=== PATIENT | female | born 1970 | race Caucasian/White ===

== ENCOUNTER 2024-10-18 12:27 | Inpatient (IN) | payer OTHER ==
[~2024-10-18 12:27] MED LIST: CITA20 PO; CLIN300 PO; HYDACE5 PO; HYDGUAL120 PO; IBUP800 PO; LORA2 PO
[2024-10-18] MEDS ORDERED: Acetaminophen325 M1 PO (14:27)
[2024-10-18 14:29] VITALS: BP 145/88
--- NOTE | 2024-10-18 14:46 | NUR ---
PT ARRIVED TO THE UNIT AT APROX 1416 TX FROM [facility]. DR JONES NOTIFIED. ADMIT HISTORY COMPLETE. PT A/O X'S 4,INDEPENDENT IN ROOM. REPORTS WORSENING ABD PAIN OVER THE LAST MONTH, DID SEEK MEDICAL ATTENTION AND WAS TX FOR "KIDNEY INFECTION" BUT PAIN DID NOT RESOLVE SO SHE WENT BACK TO THE HOSPITAL. PT HAD INCREASED PAIN TODAY SO REPEAT CT WAS ORDERED AND FOLLOWING THE DECISION WAS MADE TO TX HERE. DR OJNES NOTIFIED OF ADMISSION
[2024-10-18] MEDS ORDERED: FentaNYL Citrate 50 MCG/ML 2 ML Injection IV PRN (15:45)
[2024-10-18] MEDS ORDERED: FLU VACC TS2024-25(6MOS UP)/PF 45 MCG/0.5 ML SYRINGE IM ONE (15:45)
[2024-10-18] MEDS ORDERED: NS KCl 20mEq 1,000 ML IV SCH (15:45)
[2024-10-18] MEDS ORDERED: CefTRIAXone Sodium 2,000 MG in NS 100 ML IV SCH (16:00)
[2024-10-18] MEDS ORDERED: MetroNIDAZOLE 500MG/NS 100 ml 100 ML IV SCH (16:00)
[2024-10-18] MEDS ORDERED: Ondansetron HCl 2 MG / ML 2ML Vial IV PRN (16:25)
--- NOTE | 2024-10-18 17:30 | NUR ---
PATIENT IS ALLERT AND ORIENTED AND COOPERATIVE WITH CARE. DIRECT ADMIT FROM [facility] TODAY AROUD 2PM. C/O LOWER ABDOMINAL PAIN, MEDICATED PER EMAR. ON RA. NICOTINE PATCH ON RIGHT ARM. INDEPENDENT IN THE ROOM. NPO SINCE 0700 TODAY. PLAN IS TO CONSULT SURGERY TOMORROW MORNING 10/19/24. AFTER SHE WAS MEDICATED FOR PAIN, THE PATIENT HAS BEEN ABLE TO SLEEP. SHE LIVES IN [place], [place]. WILL CONTINUE TO MONITOR
[2024-10-18 19:08] VITALS: BP 156/96
[2024-10-18] MEDS ORDERED: Docusate Sodium 100 MG Cap PO SCH (21:00)
[2024-10-19] VITALS (10 sets, daily range): BP systolic 132–177; BP diastolic 87–99
--- NOTE | 2024-10-19 04:24 | NUR ---
SHIFT SUMMARY NO ACUTE CHANGES T/O THE NIGHT. PT IS PLEASANT AND COOPERATIVE WITH CARE. A/OX4 WITH VSS. IS NPO WITH IVF AND ABX INFUSING PER ORDERS. IS VOIDING CLEAR YELLOW URINE, ONE SMALL SOFT BM DURING SHIFT. IND IN ROOM. PAIN MANAGED PER EMAR. CHG SCRUB COMPLETE. PLAN FOR CONSULT AND POSSIBLE SURGICAL INTERVENTION TODAY. WILL GIVE REPORT TO ONCOMING RN.
[2024-10-19 05:05] LABS: BASOPHILS ABSOLUTE AUTO 0.04 K/mm3 (0.00-0.23); BASOPHILS PERCENT AUTO 0 % (0-2); EOSINOPHILS ABSOLUTE AUTO 0.08 K/mm3 (0.00-0.68); EOSINOPHILS PERCENT AUTO 1 % (0-6); Hematocrit 30.1 % (33.0-51.0); Hemoglobin 9.6 g/dL (11.5-16.0); IMMATURE GRAN PERCENT AUTO 1 % (0-1); LYMPHOCYTES ABSOLUTE AUTO 2.14 K/mm3 (0.84-5.20); LYMPHOCYTES PERCENT AUTO 13 % (21-46); MONOCYTES ABSOLUTE AUTO 0.79 K/mm3 (0.16-1.47); MONOCYTES PERCENT AUTO 5 % (4-13); Mean Corpuscular HGB 25.1 pg (26.0-34.0); Mean Corpuscular HGB Conc 31.9 g/dL (31.5-36.5); Mean Corpuscular Volume 79 fL (80-100); Mean Platelet Volume 9.5 fL (9.1-12.4); NEUTROPHILS ABSOLUTE AUTO 13.12 K/mm3 (1.96-9.15); NEUTROPHILS PERCENT AUTO 80 % (41-73); Platelet Count 523 K/mm3 (150-400); RDW Coefficient Variation 14.1 % (11.7-14.2); RDW Standard Deviation 39.9 fL (35.1-46.3); Red Blood Cell Count 3.82 M/mm3 (3.80-5.20); White Blood Cell Count 16.37 K/mm3 (4.00-11.30)
[2024-10-19 05:25] LABS: Albumin, Blood 1.9 g/dL (3.4-5.0); Albumin/Globulin Ratio 0.4 (0.8-1.8); Bilirubin, Total 0.3 mg/dL (0.1-1.0); Bun/Creatinine Ratio 8.2 (12.0-20.0); Creatinine, Blood 0.73 mg/dL (0.40-1.00); Globulin, Blood 4.4 g/dL (2.2-4.0); Potassium, Blood 3.4 mmol/L (3.5-5.5); Total Protein, Blood 6.3 g/dL (6.4-8.2)
[2024-10-19] MEDS ORDERED: Pantoprazole Sodium 40 MG Injection IV SCH (06:00)
[2024-10-19] MEDS ORDERED: Enoxaparin 40 MG/0.4 ML SYR SC SCH (09:00)
[2024-10-19] MEDS ORDERED: FLUoxetine HCL 20 MG CAP PO SCH (09:00)
[2024-10-19] MEDS ORDERED: Nicotine 14 MG PATCH TOP SCH (09:00)
[2024-10-19] MEDS ORDERED: NS KCl 20mEq 1,000 ML IV SCH (13:10)
[2024-10-19] MEDS ORDERED: Potassium Chl 20MEQ/Water100ML 100 ML IV ONE (13:10)
[2024-10-19 14:04] LABS: International Normalized Ratio 1.15; Prothrombin Time Results 12.2 Sec (9.7-11.5)
[2024-10-19] MEDS ORDERED: NS 250 ML IV PRN (14:20)
--- NOTE | 2024-10-19 15:38 | NUR ---
Upon receiving a referral for spiritual care, I visited the patient. She tells me about her medical problems and the medical plan of care. She states cynthia she is going into surgery any minute and she welcomes prayer, which I gladly provide. She displays evidence of reduced stress and of being encouraged in her [employer] juli.
--- NOTE | 2024-10-19 15:50 | NUR ---
PT TO RADIOLOGY FOR PROCEDURE
--- NOTE | 2024-10-19 16:40 | NUR ---
POST PROCEDURE PT BACK TO ROOM 211 FROM RADIOLOGY. PT IS ALERT AND RESPONSIVE, VSS, HYPERTENSIVE BUT PT IS PAINFUL. MEDICATED SHORTLY AFTER RETURN TO ROOM. PT TAKING SOME BITES OF PUDDING AND DRINKING CL. CALL LIGHT IN REACH.
--- NOTE | 2024-10-19 17:30 | NUR ---
SHIFT SUMMARY PT IS A/OX4, IND TO BR, VOIDING, HAVING LOOSE BM'S. PT REPORTS MODERATE TO SEVERE ABD PAIN THAT IS RELIEVED BY PAIN MEDS PER EMAR. TOLERATING SMALL AMNT OF FULL LIQUIDS AFTER URISIL DRAIN PLACEMENT TODAY. DRAIN INSERTION SITE C/D/I W/ TEGADERM DRESSING W/ SS OUTPUT. REPLACED K TODAY PER EMAR. PT RESTING IN BED W/ CALL LIGHT IN REACH.
--- NOTE | 2024-10-19 19:35 | NUR ---
UPDATE PT HAVING SEVERE PAIN W/ MOVEMENT AT SITE OF DRAIN PLACEMENT THAT IS RELIEVED WHEN PT IS AT REST. CONSULTED W/ DR LINDSEY AT 1930, SAYS HE WILL COME ASSESS PATIENT AT BEDSIDE.
[2024-10-19] MEDS ORDERED: HYDROcodone 5-APAP 325 TAB PO PRN (19:55)
--- NOTE | 2024-10-20 03:39 | NUR ---
SHIFT SUMMARY S/P SIGMOID COLON ABCESS WASHOUT AND URESIL DRAIN PLACEMENT. DRAIN PRODUCING SCAN AMOUNT OF SANGUINEOUS NOTED IN DRAIN TUBING/BAG. DRAIN SUCTION COMPRESSED AND DRESSING CDI. PAIN MANAGED WITH PO MEDICATION AND FENTANYL X 2 FOR BREAKTHROUGH PAIN. PT IND TO BSC. IS VOIDING AND HAS SMALL LOOSE STOOLS. WILLIAN LIQUID DIET. IVF AND ABX INFUSING PER ORDERS. PROVIDER WILL ROUND IN MORNING TO CHECK ON PATIENT, PLAN TO REMOVE DRAIN IF PAIN IS NOT WILLIAN FOR PATIENT. WILL GIVE REPORT TO ONCOMING RN.
[2024-10-20 04:27] VITALS: BP 139/78
[2024-10-20 04:29] LABS: Hematocrit 29.7 % (33.0-51.0); Hemoglobin 9.3 g/dL (11.5-16.0); Mean Corpuscular HGB 24.7 pg (26.0-34.0); Mean Corpuscular HGB Conc 31.3 g/dL (31.5-36.5); Mean Corpuscular Volume 79 fL (80-100); Mean Platelet Volume 9.5 fL (9.1-12.4); Platelet Count 533 K/mm3 (150-400); RDW Coefficient Variation 14.1 % (11.7-14.2); RDW Standard Deviation 40.2 fL (35.1-46.3); Red Blood Cell Count 3.77 M/mm3 (3.80-5.20); White Blood Cell Count 13.56 K/mm3 (4.00-11.30)
[2024-10-20 05:03] LABS: Bun/Creatinine Ratio 8.2 (12.0-20.0); Creatinine, Blood 0.73 mg/dL (0.40-1.00)
--- NOTE | 2024-10-20 06:43 | NUR ---
PT UPDATE DR. LINDSEY IN TO EVALUATE PT'S URESIL DRAIN R/T UNMANAGED PAIN. PER PROVIDER, DRAIN APPEARS APPROPRIATE WITHOUT ANY ABNORMALITIES NOTED. NEW ORDER FOR PO PAIN MEDICATION PROVIDED. DR. LINDSEY PLANS TO ROUND IN MORNING TO REEVALUATE PT'S PAIN AND WILL REMOVE IT IF NEEDED R/T PAIN. CHARGE NURSE AWARE.
[2024-10-20 07:15] VITALS: BP 126/86
[2024-10-20] MEDS ORDERED: Nicoderm Cq1 EAC1 TOP (10:26)
[2024-10-20] MEDS ORDERED: IRBE150 PO (10:26)
[2024-10-20] MEDS ORDERED: Prozac20 MG PO (10:26)
[2024-10-20] MEDS ORDERED: Acetaminophen 325 MG TABLET PO PRN (15:05)
[2024-10-20 15:24] VITALS: BP 121/82
[2024-10-20 19:01] VITALS: BP 122/90
--- NOTE | 2024-10-20 19:49 | NUR ---
SHIFT SUMMARY PT IS A/OX4, IND/SBA TO BSC. VOIDING, HAVING LOOSE BMS, PT REFUSING STOOL SOFTENERS. TOLERATING FIBER RESTRICTED DIET. IV FLUIDS @ ORDERED RATE. VSS. PAIN MANAGED W/ MEDS PER EMAR. DRAIN PULLED THIS EVENING BY DR. ESPINOZA, DRAIN REMOVAL SITE C/D/I, PT RESTING IN ROOM W/ CALL LIGHT IN REACH.
[2024-10-21 04:48] VITALS: BP 147/91
[2024-10-21 05:39] LABS: Hematocrit 28.3 % (33.0-51.0); Hemoglobin 8.8 g/dL (11.5-16.0); Mean Corpuscular HGB 24.7 pg (26.0-34.0); Mean Corpuscular HGB Conc 31.1 g/dL (31.5-36.5); Mean Corpuscular Volume 80 fL (80-100); Mean Platelet Volume 9.8 fL (9.1-12.4); Platelet Count 533 K/mm3 (150-400); RDW Coefficient Variation 14.5 % (11.7-14.2); RDW Standard Deviation 41.8 fL (35.1-46.3); Red Blood Cell Count 3.56 M/mm3 (3.80-5.20); White Blood Cell Count 10.55 K/mm3 (4.00-11.30)
--- NOTE | 2024-10-21 05:47 | NUR ---
MEDICATED FOR PAIN LLQ PRN PER EMAR. SCHEDULED MEDS GIVEN ORDERED. IVF INFUSING AT 75ML/HR SITE CLEAR. UP TO BSC WITH SB ASSIST TO VOID. DRESSING LLQ WHERE DRAIN WAS REMOVED WITH SCANT YELLOWISH DRAINAGE NOTED. RESTED QUIETLY WHEN UNDISTURBED. CALL LIGHT IN REACH AND BED IN LOWEST POSITION. WILL GIVE REPORT TO ONCOMING RN TAKING PATIENT.
[2024-10-21 05:56] LABS: Bun/Creatinine Ratio 8.2 (12.0-20.0); Calcium, Blood 7.9 mg/dL (8.5-10.1); Creatinine, Blood 0.73 mg/dL (0.40-1.00); Potassium, Blood 3.7 mmol/L (3.5-5.5)
[2024-10-21 07:50] VITALS: BP 138/81
[2024-10-21] MEDS ORDERED: Irbesartan 150 MG Tab PO SCH (09:00)
[2024-10-21] MEDS ORDERED: HYDROcodone 5-APAP 325 TAB PO PRN (14:05)
[2024-10-21] MEDS ORDERED: Ondansetron 4 MG SoluTab MM PRN (14:05)
[2024-10-21] MEDS ORDERED: FentaNYL Citrate 50 MCG/ML 2 ML Injection IV PRN (14:05)
[2024-10-21 15:10] VITALS: BP 116/89
--- NOTE | 2024-10-21 17:06 | NUR ---
SHIFT SUMMARY MS MANCIA C/O LLQ ABDOMINAL PAIN, CONTROLLED ON NORCO/FENTANYL. SHE DESCRIBES THE PAIN SHARP GAS TYPE OF PAIN. SHE WAS ENCOURAGED TO AMBULATE MORE AROUND HER ROOM AND IN THE HALLS. SHE HAS SLEPT ON AND OFF FOR MUCH OF THE SHIFT. GAUZE DRESSING LLQ C,D,I. BED LOW, CALL LIGHT IN REACH.
--- NOTE | 2024-10-21 17:15 | NUR ---
Patient is lying in bed and alert. She tells me about the success of her hospital stay but also talks about some pain incident with a drainage tube. She states that she is grateful for the care she has received and welcomes prayer. I gladly provided prayer to which the patient voices her appreciation. I will continue to remain available to patient and family.
[2024-10-21 19:30] VITALS: BP 124/85
[2024-10-21] MEDS ORDERED: MetroNIDAZOLE 500 MG Tab PO SCH (21:00)
[2024-10-22 04:23] VITALS: BP 122/85
--- NOTE | 2024-10-22 05:57 | NUR ---
SHIFT SUMMARY PATIENT INDEPENDENT IN ROOM, STEADY ON FEET. VOIDING ADEQUATE AMOUNTS. PENDING DISCHARGE TOMORROW. PATIENT REPORTS THAT HER DID IS COMING TO GET HER TO TAKE HER HOME TO [place]. PATIENT C/O OF GAS PAIN, MEDICATED PRN PER EMAR. ENCOURAGED PT TO AMBULATE MORE TO GET RID OF GAS. LLQ WITH SMALL DRSG DRY/INTACT FROM DRAIN SITE THAT WAS D/C'D. RESTED WELL WHEN UNDISTURBED. CALL LIGHT IN REACH AND BED IN LOWEST POSITION. SL PATENT, SITE CLEAR. WILL GIVE REPORT TO ONCOMING RN TAKING PATIENT.
[2024-10-22] MEDS ORDERED: Omeprazole 20 MG CapCR PO SCH (06:00)
[2024-10-22 07:16] VITALS: BP 125/99
[2024-10-22] MEDS ORDERED: LevoFLOXacin 750 MG Tab PO SCH (09:00)
[2024-10-22] MEDS ORDERED: HYDROCODONE-AC1 EA10 PO (11:38)
[2024-10-22] MEDS ORDERED: LEVO750 PO (11:38)
[2024-10-22] MEDS ORDERED: METR500 PO (11:39)
--- NOTE | 2024-10-22 12:31 | NUR ---
DISCHARGE NOTE: PATIENT GOT HERSELF DRESSED AND COLLECTED BELONGINGS. HER DAD CAME AND PICKED HER UP. SHE WAS WHEELED DOWN BY HER DAD, NO SIGNS OR SYMPTOMS OF DISTRESS WITH DISCHARGE.
== END 2024-10-22 12:10 | disposition home or self-care (01) | DRG 392 ==
LOC: MEDS 12:27 → SURS 14:15
PROVIDERS: Internal Medicine; Surgery; ADMIT Internal Medicine
PROC: 0W9J3ZX Drainage of Pelvic Cavity, Percutaneous Approach, Diagnostic (ICD-10-PCS; principal; 2024-10-19)
DX: K57.20 Diverticulitis of large intestine with perforation and abscess without bleeding (principal); F32.A Depression, unspecified; F41.9 Anxiety disorder, unspecified; K21.9 Gastro-esophageal reflux disease without esophagitis; F17.210 Nicotine dependence, cigarettes, uncomplicated; I10 Essential (primary) hypertension; F43.12 Post-traumatic stress disorder, chronic; Z90.721 Acquired absence of ovaries, unilateral; Z90.710 Acquired absence of both cervix and uterus; Z98.890 Other specified postprocedural states; Z88.1 Allergy status to other antibiotic agents; Z88.0 Allergy status to penicillin; Z79.899 Other long term (current) drug therapy
CPT/HCPCS: 36415; 49406; 72192; 80048; 80053; 85025; 85027; 85610; 85730; 87070; 87075; 87147; 87205; A9270; J0696; J1650; J2470; J3010; J3480; J7050

== ENCOUNTER 2024-11-03 10:27 | Emergency (ER) | payer OTHER ==
[~2024-11-03] VITALS: Ht 160 cm; Wt 61.2 kg
[~2024-11-03 10:27] MED LIST changes: +Acetaminophen325 M1 PO; +HYDROCODONE-AC1 EA10 PO; +IRBE150 PO; +LEVO750 PO; +METR500 PO; +Nicoderm Cq1 EAC1 TOP; +Prozac20 MG PO
[2024-11-03 11:33] LABS: BASOPHILS ABSOLUTE AUTO 0.07 K/mm3 (0.00-0.23); BASOPHILS PERCENT AUTO 1 % (0-2); EOSINOPHILS ABSOLUTE AUTO 0.18 K/mm3 (0.00-0.68); EOSINOPHILS PERCENT AUTO 2 % (0-6); Hematocrit 35.6 % (33.0-51.0); Hemoglobin 10.6 g/dL (11.5-16.0); IMMATURE GRAN ABSOLUTE AUTO 0.24 K/mm3 (0.00-0.10); IMMATURE GRAN PERCENT AUTO 2 % (0-1); LYMPHOCYTES ABSOLUTE AUTO 1.76 K/mm3 (0.84-5.20); LYMPHOCYTES PERCENT AUTO 15 % (21-46); MONOCYTES ABSOLUTE AUTO 0.34 K/mm3 (0.16-1.47); MONOCYTES PERCENT AUTO 3 % (4-13); Mean Corpuscular HGB 24.2 pg (26.0-34.0); Mean Corpuscular HGB Conc 29.8 g/dL (31.5-36.5); Mean Corpuscular Volume 81 fL (80-100); Mean Platelet Volume 9.2 fL (9.1-12.4); NEUTROPHILS ABSOLUTE AUTO 9.25 K/mm3 (1.96-9.15); NEUTROPHILS PERCENT AUTO 78 % (41-73); Platelet Count 521 K/mm3 (150-400); RDW Coefficient Variation 15.1 % (11.7-14.2); RDW Standard Deviation 43.7 fL (35.1-46.3); Red Blood Cell Count 4.38 M/mm3 (3.80-5.20); White Blood Cell Count 11.84 K/mm3 (4.00-11.30)
[2024-11-03 11:44] LABS: Albumin/Globulin Ratio 0.6 (0.8-1.8); Bilirubin, Total 0.3 mg/dL (0.1-1.0); Bun/Creatinine Ratio 16.6 (12.0-20.0); Calcium, Blood 9.3 mg/dL (8.5-10.1); Creatinine, Blood 0.78 mg/dL (0.40-1.00); Globulin, Blood 4.7 g/dL (2.2-4.0); Potassium, Blood 3.8 mmol/L (3.5-5.5); Total Protein, Blood 7.7 g/dL (6.4-8.2)
[2024-11-03 11:48] LABS: Source, Urine Clean Catch
[2024-11-03 11:55] LABS: Appearance, Urine Clear (Clear); Bilirubin, Urine Neg (Neg); Blood, Urine 1+ (Neg); Color, Urine Yellow (P-Yellow); Glucose Qualitative, Urine Neg (Neg); Ketones, Urine Neg (Neg); Leukocyte Esterase, Urine Neg (Neg); Nitrite, Urine Neg (Neg); Protein, Urine 1+ (Neg); Urobilinogen, Urine NORM (Normal)
[2024-11-03 12:28] LABS: Squamous Epithelial Cells Many /hpf (Few); White Blood Cells, Urine 0-2 /hpf (0-5)
[2024-11-03 12:29] LABS: Bacteria Mod /hpf
[2024-11-03] MEDS ORDERED: Ondansetron HCl 2 MG / ML 2ML Vial IV ONE (13:45)
[2024-11-03] MEDS ORDERED: Morphine Sulfate 4 MG/1 ML Injection IV ONE (13:45)
[2024-11-03] MEDS ORDERED: LevoFLOXacin 750 MG Tab PO ONE (13:50)
[2024-11-03] MEDS ORDERED: MetroNIDAZOLE 500 MG Tab PO ONE (13:50)
[2024-11-03] MEDS ORDERED: LEVFLO500 PO (14:24)
[2024-11-03] MEDS ORDERED: FLAGYL500 M1 PO (14:24)
[2024-11-03] MEDS ORDERED: Percocet 5-3251 EACH PO (14:24)
== END 2024-11-03 14:30 | disposition home or self-care (01) ==
LOC: ER 10:27
PROVIDERS: Physician Assistant
DX: K57.32 Diverticulitis of large intestine without perforation or abscess without bleeding (principal); I10 Essential (primary) hypertension; K21.9 Gastro-esophageal reflux disease without esophagitis; F17.210 Nicotine dependence, cigarettes, uncomplicated; Z88.0 Allergy status to penicillin; Z79.899 Other long term (current) drug therapy
CPT/HCPCS: 74177; 80053; 81001; 83690; 85025; 87086; 96374-59; 96375-59; 99284-25; A9270; J2270; J2405; Q9967

== ENCOUNTER 2024-11-08 10:34 | Inpatient (IN) | payer OTHER ==
[2024-11-08] VITALS (20 sets, daily range): BP systolic 112–133; BP diastolic 86–108
[~2024-11-08] VITALS: Ht 160 cm; Wt 59.1 kg
[~2024-11-08 10:34] MED LIST changes: +FLAGYL500 M1 PO; +LEVFLO500 PO; +Percocet 5-3251 EACH PO
[2024-11-08] MEDS ORDERED: Ondansetron HCl 2 MG / ML 2ML Vial IV PRN (10:45)
[2024-11-08 11:03] LABS: BASOPHILS ABSOLUTE AUTO 0.06 K/mm3 (0.00-0.23); BASOPHILS PERCENT AUTO 1 % (0-2); EOSINOPHILS ABSOLUTE AUTO 0.11 K/mm3 (0.00-0.68); EOSINOPHILS PERCENT AUTO 1 % (0-6); Hematocrit 39.8 % (33.0-51.0); Hemoglobin 12.3 g/dL (11.5-16.0); IMMATURE GRAN ABSOLUTE AUTO 0.12 K/mm3 (0.00-0.10); IMMATURE GRAN PERCENT AUTO 1 % (0-1); LYMPHOCYTES PERCENT AUTO 29 % (21-46); MONOCYTES ABSOLUTE AUTO 0.42 K/mm3 (0.16-1.47); MONOCYTES PERCENT AUTO 4 % (4-13); Mean Corpuscular HGB 25.1 pg (26.0-34.0); Mean Corpuscular HGB Conc 30.9 g/dL (31.5-36.5); Mean Corpuscular Volume 81 fL (80-100); Mean Platelet Volume 9.8 fL (9.1-12.4); NEUTROPHILS PERCENT AUTO 65 % (41-73); Platelet Count 449 K/mm3 (150-400); RDW Coefficient Variation 16.1 % (11.7-14.2); RDW Standard Deviation 46.2 fL (35.1-46.3); Red Blood Cell Count 4.91 M/mm3 (3.80-5.20); White Blood Cell Count 11.71 K/mm3 (4.00-11.30)
[2024-11-08 11:25] LABS: Albumin, Blood 3.3 g/dL (3.4-5.0); Albumin/Globulin Ratio 0.7 (0.8-1.8); Bilirubin, Total 0.3 mg/dL (0.1-1.0); Bun/Creatinine Ratio 21.7 (12.0-20.0); Creatinine, Blood 0.83 mg/dL (0.40-1.00); Globulin, Blood 4.7 g/dL (2.2-4.0); Potassium, Blood 4.2 mmol/L (3.5-5.5)
[2024-11-08] MEDS ORDERED: Morphine Sulfate 4 MG/1 ML Injection IV ONE (12:05)
[2024-11-08] MEDS ORDERED: Ondansetron HCl 2 MG / ML 2ML Vial IV ONE (12:05)
[2024-11-08 12:18] LABS: International Normalized Ratio 1.02; Prothrombin Time Results 10.9 Sec (9.7-11.5)
[2024-11-08] MEDS ORDERED: Aspirin 325 MG Tab PO ONE (12:20)
[2024-11-08] MEDS ORDERED: LORazepam 2 MG/ML 1ML Injection IV ONE (12:50)
[2024-11-08] MEDS ORDERED: Nitroglycerin 0.4 MG SUBL SL PRN (13:50)
[2024-11-08] MEDS ORDERED: Heparin Sodium 5000 Units/ML 1ML MDV IV ONE (14:00)
[2024-11-08] MEDS ORDERED: Heparin Sodium,Porcine/0.5 NS 500 ML IV SCH (14:00)
[2024-11-08] MEDS ORDERED: Clopidogrel Bisulfate 300 MG TABLET PO ONE (14:46)
[2024-11-08] MEDS ORDERED: Carvedilol 6.25 MG Tab PO SCH (14:49)
[2024-11-08] MEDS ORDERED: Atorvastatin 40 MG Tab PO SCH (15:00)
[2024-11-08] MEDS ORDERED: Nitroglycerin/D5W 250 ML IV SCH (15:20)
[2024-11-08 15:42] LABS: CHOL/HDL RATIO 7.1; Cholesterol 241 mg/dL (50-200); HDL Cholesterol 34 mg/dL (>39); LDL/HDL RATIO 3.8; Low Density Lipoprotein Chol 129 mg/dL (0-110); Triglycerides 391 mg/dL (30-160); Very Low Density Lipoprot Chol 78 mg/dL (6-32)
[2024-11-08] MEDS ORDERED: Clopidogrel Bisulfate 75 MG Tab PO ONE (17:00)
[2024-11-08] MEDS ORDERED: FentaNYL Citrate 50 MCG/ML 2 ML Injection IV PRN (17:20)
[2024-11-08] MEDS ORDERED: TraMADol HCl 50 MG Tab PO PRN (17:20)
[2024-11-08] MEDS ORDERED: Acetaminophen 325 MG TABLET PO PRN (17:20)
--- NOTE | 2024-11-08 19:47 | NUR ---
assumption of care assumed care of pt at 1905, pt awake, alert, oriented x4 sitting up in bed eating dinner tray, denies c/o cp, nausea, or sob, resp even and unlabored on ra, spo2 >90%,afebrile , sr 90s. bp map >65, purewick in place, + pulses richard radial and pedal, no edema noted, skin intact, moves independently, states she had a bloody loose bm in ed this am, piv to right hand and right ac patent with heparin infusing at 15 units/kg/hr to right hand. after eating 50 % of dinner tray pt c/o pain rated at 8 on scale of 0-10 and of anxiety, requesting ativan for anxiety, called and spoke with md with new orders received
[2024-11-08] MEDS ORDERED: LORazepam 1 MG Tab PO PRN (19:55)
[2024-11-08] MEDS ORDERED: Labetalol HCL 5 MG/ML 4ML Injection (Single Dose) IV PRN (20:30)
[2024-11-09] VITALS (46 sets, daily range): BP systolic 89–145; BP diastolic 62–109
[2024-11-09] MEDS ORDERED: Dose Adjust by Pharmacy XX STA ×4 (00:29→21:26)
[2024-11-09] MEDS ORDERED: Heparin Sodium 5000 Units/ML 1ML MDV IV ONE ×3 (00:30→14:35)
[2024-11-09 03:47] LABS: BASOPHILS ABSOLUTE AUTO 0.06 K/mm3 (0.00-0.23); BASOPHILS PERCENT AUTO 1 % (0-2); EOSINOPHILS ABSOLUTE AUTO 0.11 K/mm3 (0.00-0.68); EOSINOPHILS PERCENT AUTO 1 % (0-6); Hematocrit 36.5 % (33.0-51.0); Hemoglobin 11.1 g/dL (11.5-16.0); Mean Corpuscular HGB 24.6 pg (26.0-34.0); Mean Corpuscular HGB Conc 30.4 g/dL (31.5-36.5); Mean Corpuscular Volume 81 fL (80-100); Mean Platelet Volume 9.7 fL (9.1-12.4); Platelet Count 396 K/mm3 (150-400); RDW Coefficient Variation 16.7 % (11.7-14.2); RDW Standard Deviation 48.1 fL (35.1-46.3); Red Blood Cell Count 4.52 M/mm3 (3.80-5.20)
[2024-11-09 03:50] LABS: IMMATURE GRAN ABSOLUTE AUTO 0.06 K/mm3 (0.00-0.10); IMMATURE GRAN PERCENT AUTO 1 % (0-1); LYMPHOCYTES ABSOLUTE AUTO 3.71 K/mm3 (0.84-5.20); LYMPHOCYTES PERCENT AUTO 41 % (21-46); MONOCYTES ABSOLUTE AUTO 0.51 K/mm3 (0.16-1.47); MONOCYTES PERCENT AUTO 6 % (4-13); NEUTROPHILS ABSOLUTE AUTO 4.65 K/mm3 (1.96-9.15); NEUTROPHILS PERCENT AUTO 51 % (41-73)
[2024-11-09 04:11] LABS: Albumin, Blood 2.9 g/dL (3.4-5.0); Albumin/Globulin Ratio 0.7 (0.8-1.8); Bilirubin, Total 0.3 mg/dL (0.1-1.0); Bun/Creatinine Ratio 17.8 (12.0-20.0); Calcium, Blood 8.6 mg/dL (8.5-10.1); Creatinine, Blood 0.84 mg/dL (0.40-1.00); Globulin, Blood 4.2 g/dL (2.2-4.0); Potassium, Blood 3.8 mmol/L (3.5-5.5); Total Protein, Blood 7.1 g/dL (6.4-8.2)
--- NOTE | 2024-11-09 06:13 | NUR ---
SHIFT SUMMARY NO ACUTE CHANGES THIS SHIFT, AFEBRILE, RESP EVEN AND UNLABORED ON RA, SR 60-80s, DENIES C/O CP OR SOB, NO NAUSEA OR VOMITING, HAS BEEN NPO SINCE MIDNIGHT PER ORDERS, BP 115-140s WITH GOAL OF 100-120s AND MEDICATED WITH LABETOL X1 PER PRN ORDERS, PT C/O PAIN TO ABD, MEDICATED WITH TRAMADOL 100 MG PO X1, FENTANYL 25 MCG IVP X2 PER EMAR, C/O ANXIETY AND MEDICATED WITH ATIVAN 1 MG PO X1, PIV TO RIGHT HAND AND RIGHT AC PATENT , HEPARIN INFUSING AT 17 UNITS/KG/HR PER EMAR AND DOSING MANAGED BY PHARMACY, PT INDEPENDENT WITH TURNING, SIDE RAILS UP X2 CALL LIGHT IN REACH
--- NOTE | 2024-11-09 06:19 | NUR ---
UPDATE 0045 CALLED AND SPOKE WITH DR SANDERS REGARDING PT BP OF 145/102 WITH RECHECK OF 130/103, AND NOTED PREVIOUS B/P 120/100 AT 0000, NOTED IN ED NOTE OF VASCULAR SURGEON CONSULT RECOMMENDED SYSTOLIC GOAL OF 100-120 mmHg, AND NOTED PRN ORDER OF LABETOLOL WITH PARAMETER ORDERS FOR SBP >160, NEW PARAMETER ORDERS RECEIVED.
--- NOTE | 2024-11-09 08:30 | NUR ---
Prole of care: Alert & oriented. Continues to have abdominal pain. In NSR in 70s. Targeting a SBP less than 120. On room air with stable oxygen saturations. Voiding with purewick. NPO for label sewer later today. PIV x2 in place. Heparin gtt infusing, see emar for details. Will continue to monitor.
[2024-11-09] MEDS ORDERED: Clopidogrel Bisulfate 75 MG Tab PO SCH (09:00)
[2024-11-09] MEDS ORDERED: Lisinopril 20 MG Tab PO SCH (09:00)
[2024-11-09] MEDS ORDERED: Aspirin 81 MG Chew PO SCH (09:00)
[2024-11-09] MEDS ORDERED: Lisinopril 10 MG Tab PO SCH (09:00)
[2024-11-09] MEDS ORDERED: Empagliflozin 10 MG TAB PO SCH (11:12)
--- NOTE | 2024-11-09 17:17 | NUR ---
Shift summary: Remains alert & oriented, continues to endorse abdominal pain anywhere from 7 to 9 out of 10. See emar for medication administration. In NSR in 60-70s. SBP has been 100-110 throughout the day. On room air. Voided 300cc via purewick. Remains NPO with plans still in place for terrazzo laborer today. PIV x2. Heparin gtt infusing at 21 units/kg/hr. Will continue to monitor.
[2024-11-09] MEDS ORDERED: Nicotine 14 MG PATCH TOP SCH (22:30)
[2024-11-10] VITALS (16 sets, daily range): BP systolic 94–114; BP diastolic 68–92
[2024-11-10 03:29] LABS: Hematocrit 36.4 % (33.0-51.0); Hemoglobin 11.1 g/dL (11.5-16.0); Mean Platelet Volume 9.8 fL (9.1-12.4); Platelet Count 362 K/mm3 (150-400)
[2024-11-10] MEDS ORDERED: Dose Adjust by Pharmacy XX STA (03:53)
--- NOTE | 2024-11-10 06:30 | NUR ---
SHIFT SUMMARY: PT IS A&OX4, ANXIOUS BUT COOPERATIVE WITH CARE. VSS, SYS BP <120, ON RA. SR 60'S-70'S. C/O 8 PAIN TO LLQ, MANAGED WITH PRN MEDICATIONS PER EMAR. PT ABLE TO REPOSITION HERSELF IN BED INDEPENDENTLY. TOLERATING A HEART HEALTHY DIET, NPO AFTER MN FOR ANGIOGRAM TODAY. HEPARIN GTT INFUSING PER ORDERS. SBA TO BR. VOIDING ADEQUATE AMOUNTS OF DARK YELLOW URINE. NO BM THIS SHIFT. BED IN LOWEST POSITION, CALL LIGHT WITHIN REACH. CALLS APPROPRIATELY AND IS ABLE TO ADVOCATE NEEDS EFFECTIVELY.
[2024-11-10] MEDS ORDERED: NS 2,000 ML IV ONE (08:03)
[2024-11-10] MEDS ORDERED: Heparin Sodium 1000 Units/ML 10ML MDV ONE (08:03)
[2024-11-10] MEDS ORDERED: Verapamil HCL 2.5 MG/ML 2ML Injection ONE (08:03)
[2024-11-10] MEDS ORDERED: NS 250 ML IV ONE (08:03)
[2024-11-10] MEDS ORDERED: Nitroglycerin 2 MG/20 ML BTL ONE (08:03)
[2024-11-10] MEDS ORDERED: Phenylephrine HCl 100 MCG/ML-NS 10MLSYR (1MG/10ML) ONE (08:08)
[2024-11-10] MEDS ORDERED: Atropine Sulfate 0.1 MG/ML 10ML SYR ONE (08:08)
--- NOTE | 2024-11-10 08:09 | NUR ---
AM NOTE THIS RN SPOKE W/ DR. CHRISTIANSON AT APPROX. 0756 VIA TELEPHONE, ORDERS TO GIVE CARVEDILOL GIVEN. VSS. PT DENIES FEELINGS OF CHEST PAIN/PRESSURE AT THIS TIME. QTC NOTED TO BE PROLONGED, DR. CHRISTIANSON MADE AWARE. HEPARIN DRIP INFUSING PER EMAR ORDERS.
[2024-11-10] MEDS ORDERED: Midazolam HCl 1MG / ML 2ML Vial ONE (08:27)
[2024-11-10] MEDS ORDERED: FentaNYL Citrate 50 MCG/ML 2 ML Injection ONE (08:27)
[2024-11-10] MEDS ORDERED: Losartan Potassium 25 MG Tab PO SCH (09:00)
--- NOTE | 2024-11-10 09:10 | NUR ---
PATIENT BACK FROM HEAVY LINE TECHNICIAN: PATIENT ARRIVES BACK FROM HEAVY LINE TECHNICIAN, RIGHT RADIAL ACCESS SITE, SOFT NON TENDER, NO BLEEDING OR HEMATOMA. NO INTERVENTIONS WERE DONE. HAS CALL LIGHT WITHIN REACH & BED IN LOWEST POSITION.
--- NOTE | 2024-11-10 09:31 | NUR ---
CARE NOTE THIS RN ASSESSED R RADIAL ANGIO SITE, SITE IS FREE FROM APPARENT BLEEDING/HEMATOMA. PT EDUCATED ON LIMITING R ARM USE. BP AND HR STABLE. TR BAND IS IN PLACE.
[2024-11-10] MEDS ORDERED: Mag Sulfate 1 GM/D5% 100ML 100 ML IV STA (09:53)
--- NOTE | 2024-11-10 13:41 | NUR ---
RADIAL SITE: 2 CC'S WERE REMOVED FROM RIGHT RADIAL SITE WAS REMOVED AND NO LONGER HAS AIR IN THE [place]. PATIENT HAS ARM BOARD ON SITE AND REMINDER TO NOT USE ARM OR PUT ALL WEIGHT ON IT.
[2024-11-10] MEDS ORDERED: Potassium Chl 20MEQ/Water100ML 100 ML IV STA (13:50)
[2024-11-10] MEDS ORDERED: NS 250 ML IV PRN (14:55)
[2024-11-10] MEDS ORDERED: HYDROcodone 5-APAP 325 TAB PO PRN (16:10)
--- NOTE | 2024-11-10 18:21 | NUR ---
SHIFT SUMMARY PT IS ALERT AND ORIENTED X 4, SHE IS A SBA TO BATHROOM. BP HAS BEEN STABLE. PER TELE MONITORING, HR IS NOTED TO BE IN SINUS RYTHM W/ PROLONGED QTC, DRHubert'S ARE AWARE. SHE WENT TO HOME FURNISHINGS SALES REPRESENTATIVE TODAY W/ NO INTERVENTION, DR. CHRISTIANSON CAME TO BEDSIDE AND EDUCATED PT ON PROCEDURE RESULTS WELL CARDIAC MANAGEMENT. SPO2 MAINTAINED >95% VIA RA. SHE DENIES FEELINGS OF CHEST PAIN/PRESSURE BUT REPORTS LLQ ABD PAIN WHICH SHE REPORTED IS RELATED TO HX OF DIVERTICULOSIS. THIS RN PROVIDED EDUCATIONAL HANDOUT REGARDING DIET AND DIVERTICULOSIS, DIETARY CONSULT ALSO PLACED PER DR. RICO. R RADIAL ANGIO ACCESS SITE IS FREE FROM ANY APPARENT BLEEDING/HEMATOMA, TR BAND HAS BEEN REMOVED AND TRANSPARENT DRESSING IS IN PLACE, ARM BOARD IS IN PLACE AND PT HAS BEEN EDUCATED REGARDING ACTIVITY RESTRICTIONS W/ R ARM. SHE HAS APPEARED TO BE RESTING COMFORTABLY IN BED FOR MAJORITY OF SHIFT. CALL LIGHT IS W/IN REACH.
[2024-11-11 04:20] VITALS: BP 133/97
--- NOTE | 2024-11-11 06:28 | NUR ---
SHIFT SUMMARY: PT IS A&OX4, ANXIOUS BUT COOPERATIVE WITH CARE. PT SLEPT T/O MOST OF THIS SHIFT. VSS, ON RA. SR 60'S-70'S. QTc REMAINS PROLONGED. C/O MIDSTERNUM CP 02/04, THIS HAS NOT CHANGED THIS SHIFT. MANAGED WITH PRN MEDICATIONS PER EMAR. ACCESS SITE TO RIGHT RADIAL, TENDER BUT SOFT TO PALPATE. FREE OF HEMATOMA, DRESSING IS C/D/I. ARM BOARD REMAINS IN PLACE, PT IS COMPLIANT WITH RESTRICTIONS. PT ABLE TO REPOSITION HERSELF IN BED INDEPENDENTLY. TOLERATING A HEART HEALTHY DIET. SBA/INDEPENDENT TO BR. VOIDING ADEQUATE AMOUNTS OF YELLOW URINE. NO BM THIS SHIFT. BED IN LOWEST POSITION, CALL LIGHT WITHIN REACH. CALLS APPROPRIATELY AND IS ABLE TO ADVOCATE NEEDS EFFECTIVELY.
[2024-11-11 06:57] LABS: BASOPHILS ABSOLUTE AUTO 0.04 K/mm3 (0.00-0.23); BASOPHILS PERCENT AUTO 1 % (0-2); EOSINOPHILS ABSOLUTE AUTO 0.12 K/mm3 (0.00-0.68); EOSINOPHILS PERCENT AUTO 2 % (0-6); Hematocrit 35.9 % (33.0-51.0); Hemoglobin 10.9 g/dL (11.5-16.0); IMMATURE GRAN ABSOLUTE AUTO 0.04 K/mm3 (0.00-0.10); IMMATURE GRAN PERCENT AUTO 1 % (0-1); LYMPHOCYTES ABSOLUTE AUTO 2.66 K/mm3 (0.84-5.20); LYMPHOCYTES PERCENT AUTO 34 % (21-46); MONOCYTES ABSOLUTE AUTO 0.49 K/mm3 (0.16-1.47); MONOCYTES PERCENT AUTO 6 % (4-13); Mean Corpuscular HGB 24.9 pg (26.0-34.0); Mean Corpuscular HGB Conc 30.4 g/dL (31.5-36.5); Mean Corpuscular Volume 82 fL (80-100); NEUTROPHILS ABSOLUTE AUTO 4.49 K/mm3 (1.96-9.15); NEUTROPHILS PERCENT AUTO 57 % (41-73); Platelet Count 358 K/mm3 (150-400); RDW Coefficient Variation 16.9 % (11.7-14.2); RDW Standard Deviation 49.6 fL (35.1-46.3); Red Blood Cell Count 4.37 M/mm3 (3.80-5.20); White Blood Cell Count 7.84 K/mm3 (4.00-11.30)
[2024-11-11 07:17] LABS: Albumin/Globulin Ratio 0.7 (0.8-1.8); Bilirubin, Total 0.4 mg/dL (0.1-1.0); Bun/Creatinine Ratio 15.1 (12.0-20.0); Calcium, Blood 8.7 mg/dL (8.5-10.1); Creatinine, Blood 0.99 mg/dL (0.40-1.00); Globulin, Blood 4.2 g/dL (2.2-4.0); Magnesium, Blood 2.4 mg/dL (1.6-2.4); Potassium, Blood 4.4 mmol/L (3.5-5.5); Total Protein, Blood 7.2 g/dL (6.4-8.2)
[2024-11-11] MEDS ORDERED: Nicotine 14 MG PATCH TOP SCH (08:04)
[2024-11-11] MEDS ORDERED: HYDROcodone 5-APAP 325 TAB PO PRN (08:10)
[2024-11-11 08:31] VITALS: BP 113/90
[2024-11-11] MEDS ORDERED: Nicotine 21 MG PATCH TOP SCH (09:00)
[2024-11-11 11:37] VITALS: BP 99/71
[2024-11-11] MEDS ORDERED: ASPI81CH PO (16:00)
[2024-11-11] MEDS ORDERED: JARDIANCE10 MG PO (16:01)
[2024-11-11] MEDS ORDERED: CLOP75 PO (16:01)
[2024-11-11] MEDS ORDERED: ATOR40TA PO (16:01)
[2024-11-11] MEDS ORDERED: HYDR1TAB94 PO ×2 (16:02)
[2024-11-11] MEDS ORDERED: NICO21TP TOP ×2 (16:04)
[2024-11-11] MEDS ORDERED: LOSA25 PO (16:04)
[2024-11-11] MEDS ORDERED: Carvedilol12.5 MG PO ×2 (16:05)
[2024-11-11 16:38] VITALS: BP 122/92
--- NOTE | 2024-11-11 17:26 | NUR ---
DISCHARGE SUMMARY PT A&Ox4, CALLS AND COMMUNICATES NEEDS APPROPRIATELY. BP STABLE, SINUS 80's, DENIES CHEST PRESURE. REPORTS SUBSTERNAL CHEST PAIN, MANAGED PER EMAR. SpO2> 92% RA, DENIES SOB. IND IN ROOM. R RADIAL SITE WNL, NO BRUISING, BLEEDING, HEMATOME, REPORTS MILD TENDERNESS, ARM BOARD IN PLACE. DISCHARGE INSTRUCTIONS PROVIDED. ALL PT BELONGINGS GATHERED. PT TAKEN OUT VIA WHEELCHAIR BY CLINICAL STAFF MEMBER.
[2024-11-18] MEDS ORDERED: DOC250 PO ×2 (14:00)
[2024-11-19] MEDS ORDERED: Prozac20 MG PO (18:08)
[2024-11-20] MEDS ORDERED: SUCR1 PO ×2 (02:04)
== END 2024-11-11 16:55 | disposition home or self-care (01) | DRG 281 ==
LOC: ER 10:34 → PCU 14:52 → ERHOLD 14:52 → ICUE 14:52 → PCU 11-09 18:06
PROVIDERS: Emergency Medicine; Family Medicine; Student in an Organized Health Care Education/Training Program; ADMIT Hospitalist
PROC: B2111ZZ Fluoroscopy of Multiple Coronary Arteries using Low Osmolar Contrast (ICD-10-PCS; principal; 2024-11-10)
PROC: 4A023N7 Measurement of Cardiac Sampling and Pressure, Left Heart, Percutaneous Approach (ICD-10-PCS; 2024-11-10)
DX: I21.4 Non-ST elevation (NSTEMI) myocardial infarction (principal); E87.1 Hypo-osmolality and hyponatremia; I16.1 Hypertensive emergency; I50.20 Unspecified systolic (congestive) heart failure; F41.8 Other specified anxiety disorders; F43.10 Post-traumatic stress disorder, unspecified; K21.9 Gastro-esophageal reflux disease without esophagitis; F17.210 Nicotine dependence, cigarettes, uncomplicated; D64.9 Anemia, unspecified; F12.90 Cannabis use, unspecified, uncomplicated; F15.10 Other stimulant abuse, uncomplicated; E78.5 Hyperlipidemia, unspecified; I25.10 Atherosclerotic heart disease of native coronary artery without angina pectoris; I11.0 Hypertensive heart disease with heart failure; I77.811 Abdominal aortic ectasia; I70.0 Atherosclerosis of aorta; Z87.19 Personal history of other diseases of the digestive system; Z88.0 Allergy status to penicillin; Z79.899 Other long term (current) drug therapy; Z88.1 Allergy status to other antibiotic agents; Z79.891 Long term (current) use of opiate analgesic; Z79.890 Hormone replacement therapy; Z90.710 Acquired absence of both cervix and uterus; Z98.890 Other specified postprocedural states
CPT/HCPCS: 36415; 71046; 71275; 74174; 76937; 80053; 80061; 83036; 83690; 83735; 84443; 84484; 85014; 85018; 85025; 85049; 85520; 85610; 85730; 93005; 93010; 93454; 94762; 96374-59; 96375-59; 96376-59; 99152; 99285-25; A9270; C1769; C1887; C1894; C8929; J0461; J1644; J2060; J2250; J2270; J2371; J2405; J3010; J3475; J3480; J7030; J7050; Q9957; Q9967

== ENCOUNTER 2024-11-18 11:57 | Emergency (ER) | payer OTHER ==
[~2024-11-18] VITALS: Ht 160 cm; Wt 54.4 kg
[~2024-11-18 11:57] MED LIST changes: +ASPI81CH PO; +ATOR40TA PO; +CLOP75 PO; +Carvedilol12.5 MG PO; +HYDR1TAB94 PO; +JARDIANCE10 MG PO; +LOSA25 PO; +NICO21TP TOP
[2024-11-18] MEDS ORDERED: NS 1,000 ML IV SCH (12:25)
[2024-11-18] MEDS ORDERED: FentaNYL Citrate 50 MCG/ML 2 ML Injection IV ONE (12:25)
[2024-11-18] MEDS ORDERED: Ondansetron HCl 2 MG / ML 2ML Vial IV ONE (12:25)
[2024-11-18 12:54] LABS: BASOPHILS ABSOLUTE AUTO 0.06 K/mm3 (0.00-0.23); BASOPHILS PERCENT AUTO 0 % (0-2); EOSINOPHILS ABSOLUTE AUTO 0.09 K/mm3 (0.00-0.68); EOSINOPHILS PERCENT AUTO 1 % (0-6); Hematocrit 37.5 % (33.0-51.0); Hemoglobin 11.6 g/dL (11.5-16.0); IMMATURE GRAN ABSOLUTE AUTO 0.05 K/mm3 (0.00-0.10); IMMATURE GRAN PERCENT AUTO 0 % (0-1); LYMPHOCYTES ABSOLUTE AUTO 2.98 K/mm3 (0.84-5.20); LYMPHOCYTES PERCENT AUTO 21 % (21-46); MONOCYTES ABSOLUTE AUTO 0.64 K/mm3 (0.16-1.47); MONOCYTES PERCENT AUTO 4 % (4-13); Mean Corpuscular HGB 25.3 pg (26.0-34.0); Mean Corpuscular HGB Conc 30.9 g/dL (31.5-36.5); Mean Corpuscular Volume 82 fL (80-100); Mean Platelet Volume 11.4 fL (9.1-12.4); NEUTROPHILS ABSOLUTE AUTO 10.71 K/mm3 (1.96-9.15); NEUTROPHILS PERCENT AUTO 74 % (41-73); Platelet Count 356 K/mm3 (150-400); RDW Coefficient Variation 16.8 % (11.7-14.2); RDW Standard Deviation 50.1 fL (35.1-46.3); Red Blood Cell Count 4.58 M/mm3 (3.80-5.20); White Blood Cell Count 14.53 K/mm3 (4.00-11.30)
[2024-11-18 14:00] LABS: Albumin, Blood 3.7 g/dL (3.4-5.0); Albumin/Globulin Ratio 0.9 (0.8-1.8); Bilirubin, Total 0.5 mg/dL (0.1-1.0); Bun/Creatinine Ratio 17.7 (12.0-20.0); Calcium, Blood 9.4 mg/dL (8.5-10.1); Creatinine, Blood 0.85 mg/dL (0.40-1.00); Globulin, Blood 4.3 g/dL (2.2-4.0); Potassium, Blood 4.1 mmol/L (3.5-5.5)
[2024-11-18] MEDS ORDERED: ONDA4ODT MM (14:00)
[2024-11-18] MEDS ORDERED: DOC250 PO (14:00)
[2024-11-18] MEDS ORDERED: FAMO20 PO (14:00)
[2024-11-18] MEDS ORDERED: PROBIOTIC1 EA13 PO (14:12)
[2024-11-24] MEDS ORDERED: HYDACE10B PO (14:24)
[2024-11-24] MEDS ORDERED: DOXY100 PO (14:30)
[2024-11-24] MEDS ORDERED: BACTRIM DS TAB1 EAC6 PO (14:55)
[2024-11-24] MEDS ORDERED: TRANSDERM-SCOP1 EA13 TD (14:55)
[2024-11-24] MEDS ORDERED: PROM25 PO (14:56)
== END 2024-11-18 14:21 | disposition home or self-care (01) ==
LOC: ER 11:57
PROVIDERS: Emergency Medicine
DX: R07.89 Other chest pain (principal); R10.9 Unspecified abdominal pain; R11.2 Nausea with vomiting, unspecified; I25.2 Old myocardial infarction; I11.0 Hypertensive heart disease with heart failure; I50.20 Unspecified systolic (congestive) heart failure; E78.5 Hyperlipidemia, unspecified; K21.9 Gastro-esophageal reflux disease without esophagitis; F17.210 Nicotine dependence, cigarettes, uncomplicated; Z59.01 Sheltered homelessness; Z88.0 Allergy status to penicillin; Z79.82 Long term (current) use of aspirin; Z79.01 Long term (current) use of anticoagulants; Z79.899 Other long term (current) drug therapy
CPT/HCPCS: 80053; 84484; 85025; 93005; 93010; 96361; 96374; 96375; 99284-25; J2405; J3010; J7030

== ENCOUNTER 2024-11-19 17:59 | Emergency (ER) | payer OTHER ==
[~2024-11-19] VITALS: Ht 160 cm; Wt 54.4 kg
[~2024-11-19 17:59] MED LIST changes: +DOC250 PO; +FAMO20 PO; +ONDA4ODT MM; +PROBIOTIC1 EA13 PO
[2024-11-19] MEDS ORDERED: Lactated Ringer's 1,000 ML IV ONE (18:40)
[2024-11-19] MEDS ORDERED: DiphenhydrAMINE HCl 50 MG/ML 1ML Vial IV ONE (18:45)
[2024-11-19 18:49] LABS: BASOPHILS ABSOLUTE AUTO 0.05 K/mm3 (0.00-0.23); BASOPHILS PERCENT AUTO 1 % (0-2); EOSINOPHILS ABSOLUTE AUTO 0.04 K/mm3 (0.00-0.68); EOSINOPHILS PERCENT AUTO 0 % (0-6); Hematocrit 33.3 % (33.0-51.0); Hemoglobin 10.2 g/dL (11.5-16.0); IMMATURE GRAN ABSOLUTE AUTO 0.03 K/mm3 (0.00-0.10); IMMATURE GRAN PERCENT AUTO 0 % (0-1); LYMPHOCYTES ABSOLUTE AUTO 2.25 K/mm3 (0.84-5.20); LYMPHOCYTES PERCENT AUTO 22 % (21-46); MONOCYTES ABSOLUTE AUTO 0.42 K/mm3 (0.16-1.47); MONOCYTES PERCENT AUTO 4 % (4-13); Mean Corpuscular HGB 25.4 pg (26.0-34.0); Mean Corpuscular HGB Conc 30.6 g/dL (31.5-36.5); Mean Corpuscular Volume 83 fL (80-100); Mean Platelet Volume 11.5 fL (9.1-12.4); NEUTROPHILS ABSOLUTE AUTO 7.24 K/mm3 (1.96-9.15); NEUTROPHILS PERCENT AUTO 72 % (41-73); Platelet Count 278 K/mm3 (150-400); RDW Coefficient Variation 16.7 % (11.7-14.2); RDW Standard Deviation 50.6 fL (35.1-46.3); Red Blood Cell Count 4.01 M/mm3 (3.80-5.20); White Blood Cell Count 10.03 K/mm3 (4.00-11.30)
[2024-11-19 19:28] LABS: Albumin, Blood 3.4 g/dL (3.4-5.0); Albumin/Globulin Ratio 0.9 (0.8-1.8); Bilirubin, Total 0.4 mg/dL (0.1-1.0); Bun/Creatinine Ratio 12.4 (12.0-20.0); Calcium, Blood 8.7 mg/dL (8.5-10.1); Creatinine, Blood 0.97 mg/dL (0.40-1.00); Globulin, Blood 3.7 g/dL (2.2-4.0); Potassium, Blood 3.8 mmol/L (3.5-5.5); Total Protein, Blood 7.1 g/dL (6.4-8.2)
[2024-11-19 20:21] LABS: Source, Urine Clean Catch
[2024-11-19 20:24] LABS: Appearance, Urine Clear (Clear); Bilirubin, Urine Neg (Neg); Blood, Urine Neg (Neg); Color, Urine Yellow (P-Yellow); Glucose Qualitative, Urine Neg (Neg); Ketones, Urine Neg (Neg); Leukocyte Esterase, Urine Neg (Neg); Nitrite, Urine Neg (Neg); Protein, Urine Neg (Neg); Specific Gravity, Urine 1.015 (1.003-1.022); Urobilinogen, Urine NORM (Normal)
[2024-11-19] MEDS ORDERED: Lidocaine 2% Viscous Soln 15 ML UDC PO ONE (22:40)
[2024-11-19] MEDS ORDERED: Pantoprazole Sodium 40 MG Injection IV ONE (22:40)
[2024-11-19] MEDS ORDERED: Mag Hydrox/AL Hydrox/Simeth 30 ML UDC PO ONE (22:40)
[2024-11-19] MEDS ORDERED: LORazepam 2 MG/ML 1ML Injection IV ONE (23:05)
[2024-11-20] MEDS ORDERED: SUCR1 PO (02:04)
[2024-11-24] MEDS ORDERED: HYDACE10B PO (14:24)
[2024-11-24] MEDS ORDERED: DOXY100 PO (14:30)
[2024-11-24] MEDS ORDERED: TRANSDERM-SCOP1 EA13 TD (14:55)
[2024-11-24] MEDS ORDERED: BACTRIM DS TAB1 EAC6 PO (14:55)
[2024-11-24] MEDS ORDERED: PROM25 PO (14:56)
== END 2024-11-20 05:12 | disposition home or self-care (01) ==
LOC: ER 17:59
PROVIDERS: Student in an Organized Health Care Education/Training Program
DX: R10.13 Epigastric pain (principal); R11.2 Nausea with vomiting, unspecified; K27.9 Peptic ulcer, site unspecified, unspecified as acute or chronic, without hemorrhage or perforation; Z59.89 Other problems related to housing and economic circumstances; F17.210 Nicotine dependence, cigarettes, uncomplicated; I10 Essential (primary) hypertension; K21.9 Gastro-esophageal reflux disease without esophagitis; E78.5 Hyperlipidemia, unspecified; Z88.0 Allergy status to penicillin; Z79.891 Long term (current) use of opiate analgesic; Z79.899 Other long term (current) drug therapy; Z79.890 Hormone replacement therapy; Z79.51 Long term (current) use of inhaled steroids; Z79.52 Long term (current) use of systemic steroids; Z79.84 Long term (current) use of oral hypoglycemic drugs; Z79.83 Long term (current) use of bisphosphonates; Z79.1 Long term (current) use of non-steroidal anti-inflammatories (NSAID)
CPT/HCPCS: 71045; 80053; 81003; 83690; 84484; 85025; 93005; 93010; 96361; 96374; 96375; 99285-25; A9270; J1200; J2060; J2470; J7120

== ENCOUNTER 2024-11-22 09:52 | Inpatient (IN) | payer OTHER ==
[~2024-11-22] VITALS: Ht 160 cm; Wt 61.5 kg
[~2024-11-22 09:52] MED LIST changes: +SUCR1 PO
[2024-11-22] MEDS ORDERED: NS 1,000 ML IV SCH ×3 (10:05→13:45)
[2024-11-22] MEDS ORDERED: FentaNYL Citrate 50 MCG/ML 2 ML Injection IV ONE (10:05)
[2024-11-22] MEDS ORDERED: Pantoprazole Sodium 40 MG Injection IV ONE (10:05)
[2024-11-22 10:31] LABS: BASOPHILS ABSOLUTE AUTO 0.06 K/mm3 (0.00-0.23); BASOPHILS PERCENT AUTO 1 % (0-2); EOSINOPHILS ABSOLUTE AUTO 0.02 K/mm3 (0.00-0.68); EOSINOPHILS PERCENT AUTO 0 % (0-6); IMMATURE GRAN ABSOLUTE AUTO 0.05 K/mm3 (0.00-0.10); IMMATURE GRAN PERCENT AUTO 0 % (0-1); LYMPHOCYTES ABSOLUTE AUTO 2.52 K/mm3 (0.84-5.20); LYMPHOCYTES PERCENT AUTO 20 % (21-46); MONOCYTES ABSOLUTE AUTO 0.41 K/mm3 (0.16-1.47); MONOCYTES PERCENT AUTO 3 % (4-13); Mean Corpuscular HGB 25.1 pg (26.0-34.0); Mean Corpuscular HGB Conc 30.6 g/dL (31.5-36.5); Mean Corpuscular Volume 82 fL (80-100); NEUTROPHILS ABSOLUTE AUTO 9.61 K/mm3 (1.96-9.15); NEUTROPHILS PERCENT AUTO 76 % (41-73); Platelet Count 291 K/mm3 (150-400); RDW Coefficient Variation 16.8 % (11.7-14.2); RDW Standard Deviation 50.5 fL (35.1-46.3); Red Blood Cell Count 4.38 M/mm3 (3.80-5.20); White Blood Cell Count 12.67 K/mm3 (4.00-11.30)
[2024-11-22] MEDS ORDERED: Droperidol 5 mg/2 ml Vial IV ONE (10:35)
[2024-11-22] MEDS ORDERED: Haloperidol Lactate Inj. 5 MG/ML Injection IV ONE (10:40)
[2024-11-22 10:54] LABS: Albumin, Blood 3.4 g/dL (3.4-5.0); Albumin/Globulin Ratio 0.8 (0.8-1.8); Bilirubin, Total 0.4 mg/dL (0.1-1.0); Bun/Creatinine Ratio 14.1 (12.0-20.0); Calcium, Blood 8.7 mg/dL (8.5-10.1); Creatinine, Blood 0.85 mg/dL (0.40-1.00); Globulin, Blood 4.1 g/dL (2.2-4.0); Magnesium, Blood 2.2 mg/dL (1.6-2.4); Potassium, Blood 4.1 mmol/L (3.5-5.5); Total Protein, Blood 7.5 g/dL (6.4-8.2)
[2024-11-22] MEDS ORDERED: Cefepime HCl 1,000 MG in NS 100 ML IV ONE (12:05)
[2024-11-22] MEDS ORDERED: MetroNIDAZOLE 500MG/NS 100 ml 100 ML IV ONE (12:05)
[2024-11-22] MEDS ORDERED: Ciprofloxacin 400MG/D5 200ML 200 ML IV SCH (16:00)
[2024-11-22 16:37] VITALS: BP 117/84
[2024-11-22] MEDS ORDERED: Ondansetron HCl 2 MG / ML 2ML Vial IV PRN (17:10)
[2024-11-22] MEDS ORDERED: Metoclopramide HCl 5MG / ML 2ML Vial IV PRN (17:10)
[2024-11-22] MEDS ORDERED: Scopolamine Hydrobromide Patch TOP SCH (17:15)
[2024-11-22] MEDS ORDERED: Droperidol 5 mg/2 ml Vial IV PRN (17:15)
[2024-11-22] MEDS ORDERED: HYDROcodone 5-APAP 325 TAB PO PRN (17:20)
[2024-11-22] MEDS ORDERED: Morphine Sulfate 4 MG/1 ML Injection IV PRN ×2 (17:20→17:25)
--- NOTE | 2024-11-22 17:24 | NUR ---
SHIFT SUMMARY PATIENT ARRIVED TO FLOOR FROM ED ABOUT 1625. A/O X4. REPORTS PAIN 8/10 IN LOWER LEFT GASTRIC REGION, HYPOACTIVE TONES, REPORTS LAST BM 11/17. NO SKIN CONCERNS AT THIS TIME. HAS UPPER AND LOWER DENTURES, WEARS CONTACTS THAT SHE STATES SHE NEVER TAKES OUT. RECEIVED CIPRO IV, TOLERATED WELL SO FAR. TELE SINUS WITH INVERTED T WAVE. ABLE TO MAKE NEEDS KNOWN. CALL LIGHT IN REACH.
[2024-11-22 19:20] VITALS: BP 126/91
[2024-11-22 23:56] VITALS: BP 123/88
[2024-11-23] MEDS ORDERED: MetroNIDAZOLE 500MG/NS 100 ml 100 ML IV SCH
--- NOTE | 2024-11-23 03:23 | NUR ---
SHIFT SUMMARY PATIENT HAS BEEN SLEEPING INTERMITTANTLY THROUGHOUT THE NIGHT. SHE HAS NOT HAD ANY EPISODES OF VOMITING. MEDICATED X 1 FOR PAIN AND NAUSEA ON THIS SHIFT SO FAR. VITAL SIGNS ARE STABLE. IV ABX HAVE INFUSED WITHOUT COMPLICATIONS. PATIENT IS ORIENTED X4. SHE HAS HER CALL LIGHT WITHIN REACH. SAFETY PRECAUTIONS ARE BEING MAINTAINED.
[2024-11-23 03:26] VITALS: BP 116/76
[2024-11-23 06:26] LABS: BASOPHILS ABSOLUTE AUTO 0.04 K/mm3 (0.00-0.23); BASOPHILS PERCENT AUTO 1 % (0-2); EOSINOPHILS ABSOLUTE AUTO 0.08 K/mm3 (0.00-0.68); EOSINOPHILS PERCENT AUTO 1 % (0-6); Hematocrit 31.4 % (33.0-51.0); Hemoglobin 9.7 g/dL (11.5-16.0); IMMATURE GRAN ABSOLUTE AUTO 0.04 K/mm3 (0.00-0.10); IMMATURE GRAN PERCENT AUTO 1 % (0-1); LYMPHOCYTES ABSOLUTE AUTO 2.03 K/mm3 (0.84-5.20); LYMPHOCYTES PERCENT AUTO 28 % (21-46); MONOCYTES ABSOLUTE AUTO 0.44 K/mm3 (0.16-1.47); MONOCYTES PERCENT AUTO 6 % (4-13); Mean Corpuscular HGB 25.6 pg (26.0-34.0); Mean Corpuscular HGB Conc 30.9 g/dL (31.5-36.5); Mean Corpuscular Volume 83 fL (80-100); NEUTROPHILS ABSOLUTE AUTO 4.52 K/mm3 (1.96-9.15); NEUTROPHILS PERCENT AUTO 63 % (41-73); RDW Coefficient Variation 17.1 % (11.7-14.2); Red Blood Cell Count 3.79 M/mm3 (3.80-5.20); White Blood Cell Count 7.15 K/mm3 (4.00-11.30)
[2024-11-23 06:42] LABS: Albumin, Blood 2.9 g/dL (3.4-5.0); Albumin/Globulin Ratio 0.8 (0.8-1.8); Bilirubin, Total 0.4 mg/dL (0.1-1.0); Bun/Creatinine Ratio 7.7 (12.0-20.0); Calcium, Blood 8.3 mg/dL (8.5-10.1); Creatinine, Blood 0.91 mg/dL (0.40-1.00); Globulin, Blood 3.6 g/dL (2.2-4.0); Potassium, Blood 4.1 mmol/L (3.5-5.5); Total Protein, Blood 6.5 g/dL (6.4-8.2)
[2024-11-23 06:46] LABS: Mean Platelet Volume 11.2 fL (9.1-12.4); Platelet Count 193 K/mm3 (150-400)
[2024-11-23 07:57] VITALS: BP 131/80
[2024-11-23] MEDS ORDERED: Enoxaparin 40 MG/0.4 ML SYR SC SCH (09:00)
--- NOTE | 2024-11-23 10:59 | NUR ---
"Spiritual Care Visit | Pt. request Pt. is awake and walking around her room when I visited. Pt. is pleasant and welcomed my visit. Facilitate a life review and consider matters of juli and belief. Pt. displays evidence of awareness and engagement. Pt. verbalizes her past hospitalization and ongoing pain. Prayed for the Pt. Pt. verbalized gratitude for the spiritual care visit."
[2024-11-23 12:13] VITALS: BP 117/91
--- NOTE | 2024-11-23 12:44 | NUR ---
NOTE: RECEIVED CALL FROM FLORAL MANAGER THIS AM STATING PT QTc IS .54. ATTEMPTED CALL TO DR. SZYMANSKI WITHOUT ANSWER. RECEIVED ANOTHER CALL FROM FLORAL MANAGER APPROX 2 HOURS LATER STATING QTc INCREASED TO .56 AND RECOMMENDING EKG HE BELIEVED ACTUAL NUMBER COULD BE HIGHER. SPOKE WITH DR. SZYMANSKI STATING TO ORDER AND COMPLETE ROUTINE EKG AND WILL ADJUST PT MEDICATIONS. EKG COMPLETED AND SHOWN TO DR. SZYMANSKI. THIS RN SPOKE WITH [facility] STATING ACCURATE QTc.
[2024-11-23] MEDS ORDERED: Furosemide 10 MG/ML 4ML Vial IV ONE (13:55)
[2024-11-23 14:32] LABS: Magnesium, Blood 2.1 mg/dL (1.6-2.4)
[2024-11-23 14:34] LABS: Thyroid Stimulating Hormone 3.41 uIU/mL (0.360-4.800)
[2024-11-23 15:23] VITALS: BP 123/90
[2024-11-23] MEDS ORDERED: Clindamycin 600mg in D5W 50 ML IV SCH (16:00)
[2024-11-23] MEDS ORDERED: Multivitamins 1 Tab PO SCH (16:50)
[2024-11-23] MEDS ORDERED: Thiamine HCl 100 MG Tab PO SCH (16:50)
--- NOTE | 2024-11-23 18:17 | NUR ---
SHIFT SUMMARY: PT A&O X4. PLEASANT AND COOPERATIVE WITH CARE. INDEPENDENT IN ROOM. TELE CALLED THIS AM STATING PT QTc IS PROLONGED NEAR .60. DR. SZYMANSKI NOTIFIED AND EKG COMPLETED. PT C/O 7-05/07 PAIN. PAIN MEDICATION PROVIDED PER EMAR. PT PLACED ON REGULAR DIET AND TOLERATING WELL. PT RECEIVED ONE TIME DOSE LASIX FOR ELEVATED BNP. NEW ABX IN PLACE. ZOFRAN AND REGLAN D/C D/T PROLONG QTc. CALL LIGHT IN REACH. BED IN LOWEST POSITION.
[2024-11-23 20:06] VITALS: BP 103/67
[2024-11-23] MEDS ORDERED: Trimethoprim/Sulfamethoxazole DS Tab PO SCH (21:00)
[2024-11-23 23:33] VITALS: BP 140/90
--- NOTE | 2024-11-24 03:18 | NUR ---
SHIFT SUMMARY PATIENT APPEARS TO BE RESTING COMFORTABLY AT THIS TIME. VSS. TELEMTRY IS IN PLACE. RHYTHM IS NSR WITH AN INVERTED T WAVE AND A LONG QTC. MD IS AWARE. CLINDAMYCIN INFUSED WITHOU COMPLICATION ON THIS SHIFT. PATIENT HAS BEEN MEDICATED FOR ABDOMINAL PAIN X2. NO COMPLAINTS OF NAUSEA. PATIENT ORIENTED X4. SHE HAS HER CALL LIGHT WITHIN REACH. SAFETY PRECAUTIONS ARE BEING MAINTAINED.
[2024-11-24 03:30] VITALS: BP 109/61
[2024-11-24 06:05] LABS: BASOPHILS ABSOLUTE AUTO 0.03 K/mm3 (0.00-0.23); BASOPHILS PERCENT AUTO 1 % (0-2); EOSINOPHILS PERCENT AUTO 2 % (0-6); Hematocrit 32.3 % (33.0-51.0); IMMATURE GRAN ABSOLUTE AUTO 0.01 K/mm3 (0.00-0.10); IMMATURE GRAN PERCENT AUTO 0 % (0-1); LYMPHOCYTES ABSOLUTE AUTO 1.93 K/mm3 (0.84-5.20); LYMPHOCYTES PERCENT AUTO 33 % (21-46); MONOCYTES ABSOLUTE AUTO 0.43 K/mm3 (0.16-1.47); MONOCYTES PERCENT AUTO 7 % (4-13); Mean Corpuscular HGB 25.6 pg (26.0-34.0); Mean Corpuscular Volume 83 fL (80-100); Mean Platelet Volume 10.8 fL (9.1-12.4); NEUTROPHILS ABSOLUTE AUTO 3.38 K/mm3 (1.96-9.15); NEUTROPHILS PERCENT AUTO 58 % (41-73); Platelet Count 233 K/mm3 (150-400); RDW Coefficient Variation 16.8 % (11.7-14.2); RDW Standard Deviation 50.4 fL (35.1-46.3); Red Blood Cell Count 3.91 M/mm3 (3.80-5.20); White Blood Cell Count 5.88 K/mm3 (4.00-11.30)
[2024-11-24 06:39] LABS: Albumin, Blood 2.8 g/dL (3.4-5.0); Albumin/Globulin Ratio 0.8 (0.8-1.8); Bilirubin, Total 0.3 mg/dL (0.1-1.0); Bun/Creatinine Ratio 8.2 (12.0-20.0); Calcium, Blood 8.6 mg/dL (8.5-10.1); Creatinine, Blood 0.97 mg/dL (0.40-1.00); Globulin, Blood 3.7 g/dL (2.2-4.0); Phosphorus, Blood 4.8 mg/dL (2.5-4.9); Potassium, Blood 3.7 mmol/L (3.5-5.5); Total Protein, Blood 6.5 g/dL (6.4-8.2)
[2024-11-24 07:22] VITALS: BP 124/82
--- NOTE | 2024-11-24 08:22 | NUR ---
ASSUMPTION OF CARE: ASSUMED CARE OF PATIENT. AWAKE DURING SHIFT CHANGE REPORT. SITTING UP IN BED. SALINE LOCKED LAC. TELE SINUS JESSEE @ 51; QT @ 0.52. PAIN 02/04; MORPHINE DUE AT 0745. BED IN LOWEST POSITION. CALL LIGHT WITHIN REACH. NO ACUTE NEEDS.
[2024-11-24 11:40] VITALS: BP 103/78
--- NOTE | 2024-11-24 12:17 | NUR ---
PATIENT SLATED FOR DISCHARGE TODAY OR TOMORROW; STILL HAVING C/O LLQ PAIN AND REQUESTING NORCO AND MORPHINE Q4H, ALTERNATING Q2H. PER DR. SZYMANSKI: GIVE 10/325MG NORCO NOW. THEN CHANGE ORDER FOR NORCO 5/325MG 1-2 Q4H PRN PAIN. DC MORPHINE. ORDER CONFIRMED BY READ-BACK.
[2024-11-24] MEDS ORDERED: HYDROcodone 10-APAP 325 TAB PO ONE (12:20)
[2024-11-24] MEDS ORDERED: HYDACE10B PO ×2 (14:24)
[2024-11-24] MEDS ORDERED: DOXY100 PO ×2 (14:30)
[2024-11-24] MEDS ORDERED: TRANSDERM-SCOP1 EA13 TD ×2 (14:55)
[2024-11-24] MEDS ORDERED: BACTRIM DS TAB1 EAC6 PO ×2 (14:55)
[2024-11-24] MEDS ORDERED: PROM25 PO ×2 (14:56)
--- NOTE | 2024-11-24 15:48 | NUR ---
FENDER MECHANIC DOCUMENTATION REVIEW: THIS RN HAS PERSONALLY REVIEWED DOCUMENTATION BY STUDENT NURSE. ALL CONTROLLED SUBSTANCES GIVEN BY AND APPROPRIATE IV PUSHES DIRECTLY OBSERVED BY THIS RN.
--- NOTE | 2024-11-24 16:19 | NUR ---
DISCHARGE SUMMARY: A&Ox4. PLEASANT AND COOPERATIVE WITH CARE. CALLS APPROPRIATELY AND IS ABLE TO ADVOCATE NEEDS EFFECTIVELY. INDEPENDENT c AMBULATION. CONTINENT OF BOWEL AND BLADDER. MEDS WHOLE c FLUIDS. TELE SINUS JESSEE @ 51 c QT 0.52. PAIN LLQ Tx PRN NORCO AND MORPHINE; EVENTUALLY CHANGED TO 10MG NORCO. MEDICATIONS FAXED TO [facility]. INSTRUCTED TO FOLLOW-UP WITH PCP. LEFT FLOOR WITH ALL BELONGINGS AND DISCHARGE PACKET. TRANSPORTATION PROVIDED BY [facility].
[2024-11-24] MEDS ORDERED: HYDROcodone 5-APAP 325 TAB PO PRN (16:30)
== END 2024-11-24 16:08 | disposition home or self-care (01) | DRG 392 ==
LOC: ER 09:52 → MEDS 09:53
PROVIDERS: Emergency Medicine; ADMIT Family Medicine
DX: K57.32 Diverticulitis of large intestine without perforation or abscess without bleeding (principal); I50.22 Chronic systolic (congestive) heart failure; R79.89 Other specified abnormal findings of blood chemistry; R94.31 Abnormal electrocardiogram [ECG] [EKG]; I11.0 Hypertensive heart disease with heart failure; F17.210 Nicotine dependence, cigarettes, uncomplicated; I25.10 Atherosclerotic heart disease of native coronary artery without angina pectoris; Z66 Do not resuscitate; F41.9 Anxiety disorder, unspecified; F32.A Depression, unspecified; K21.9 Gastro-esophageal reflux disease without esophagitis; E78.5 Hyperlipidemia, unspecified; Z88.0 Allergy status to penicillin; Z95.5 Presence of coronary angioplasty implant and graft; I25.2 Old myocardial infarction; Z79.82 Long term (current) use of aspirin; Z79.02 Long term (current) use of antithrombotics/antiplatelets; Z79.84 Long term (current) use of oral hypoglycemic drugs
CPT/HCPCS: 36415; 74177; 80053; 83690; 83735; 83880; 84100; 84443; 84484; 85025; 93005; 93010; 96361; 96365-59; 96368; 96375; 99285-25; A9270; J0692; J0744; J1630; J1650; J1790; J1940; J2270; J2405; J2470; J3010; J7030; Q9967

== ENCOUNTER 2024-11-30 07:40 | Inpatient (IN) | payer OTHER ==
[~2024-11-30] VITALS: Ht 160 cm; Wt 55.6 kg
[~2024-11-30 07:40] MED LIST changes: +BACTRIM DS TAB1 EAC6 PO; +DOXY100 PO; +HYDACE10B PO; +PROM25 PO; +TRANSDERM-SCOP1 EA13 TD
[2024-11-30] MEDS ORDERED: Ondansetron HCl 2 MG / ML 2ML Vial IV ONE (08:05)
[2024-11-30 08:12] LABS: BASOPHILS ABSOLUTE AUTO 0.04 K/mm3 (0.00-0.23); BASOPHILS PERCENT AUTO 0 % (0-2); EOSINOPHILS ABSOLUTE AUTO 0.05 K/mm3 (0.00-0.68); EOSINOPHILS PERCENT AUTO 1 % (0-6); Hematocrit 36.1 % (33.0-51.0); Hemoglobin 11.3 g/dL (11.5-16.0); IMMATURE GRAN ABSOLUTE AUTO 0.04 K/mm3 (0.00-0.10); IMMATURE GRAN PERCENT AUTO 0 % (0-1); LYMPHOCYTES ABSOLUTE AUTO 2.13 K/mm3 (0.84-5.20); LYMPHOCYTES PERCENT AUTO 24 % (21-46); MONOCYTES ABSOLUTE AUTO 0.26 K/mm3 (0.16-1.47); MONOCYTES PERCENT AUTO 3 % (4-13); Mean Corpuscular HGB 25.9 pg (26.0-34.0); Mean Corpuscular HGB Conc 31.3 g/dL (31.5-36.5); Mean Corpuscular Volume 83 fL (80-100); Mean Platelet Volume 10.5 fL (9.1-12.4); NEUTROPHILS ABSOLUTE AUTO 6.47 K/mm3 (1.96-9.15); NEUTROPHILS PERCENT AUTO 72 % (41-73); Platelet Count 375 K/mm3 (150-400); RDW Coefficient Variation 16.4 % (11.7-14.2); RDW Standard Deviation 49.3 fL (35.1-46.3); Red Blood Cell Count 4.37 M/mm3 (3.80-5.20); White Blood Cell Count 8.99 K/mm3 (4.00-11.30)
[2024-11-30] MEDS ORDERED: HYDROmorphone HCl/Pf 1MG SYR IV ONE (08:15)
[2024-11-30 08:22] LABS: Albumin, Blood 3.5 g/dL (3.4-5.0); Albumin/Globulin Ratio 0.8 (0.8-1.8); Bilirubin, Total 0.2 mg/dL (0.1-1.0); Bun/Creatinine Ratio 15.6 (12.0-20.0); Calcium, Blood 9.2 mg/dL (8.5-10.1); Creatinine, Blood 0.96 mg/dL (0.40-1.00); Globulin, Blood 4.4 g/dL (2.2-4.0); Potassium, Blood 4.1 mmol/L (3.5-5.5); Total Protein, Blood 7.9 g/dL (6.4-8.2)
[2024-11-30 08:29] LABS: International Normalized Ratio 0.99; Prothrombin Time Results 10.6 Sec (9.7-11.5)
[2024-11-30] MEDS ORDERED: Piperacillin/Tazobactam Sod 3.375 GM in NS 100 ML IV ONE (10:50)
[2024-11-30] MEDS ORDERED: Promethazine HCl 25 MG Tab PO PRN (12:50)
[2024-11-30] MEDS ORDERED: FentaNYL Citrate 50 MCG/ML 2 ML Injection IV PRN (12:50)
[2024-11-30] MEDS ORDERED: HYDROcodone 5-APAP 325 TAB PO PRN (12:55)
[2024-11-30] MEDS ORDERED: Ondansetron HCl 2 MG / ML 2ML Vial IV PRN (13:00)
[2024-11-30] MEDS ORDERED: Ciprofloxacin 400MG/D5 200ML 200 ML IV SCH (13:01)
[2024-11-30] MEDS ORDERED: MetroNIDAZOLE 500MG/NS 100 ml 100 ML IV SCH (13:01)
[2024-11-30 14:20] VITALS: BP 100/80
[2024-11-30] MEDS ORDERED: Sucralfate 1 GM Tab PO SCH (15:00)
[2024-11-30] MEDS ORDERED: NS 250 ML IV PRN (15:00)
--- NOTE | 2024-11-30 16:46 | NUR ---
"Spiritual Care Visit | Pt. Request Pt. is awake in bed and welcomes my visit. Pt. is pleasant and soon it becomes evident that the release specialist saw this Pt. last week. Facilitate an update. Pt. displays evidence of trust. Prayed with Pt. Pt. verbalized gratitude for the spiritual care visit and welcome [facility] release specialist to return."
[2024-11-30] MEDS ORDERED: Carvedilol 6.25 MG Tab PO SCH (17:00)
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
[2024-11-30 19:41] VITALS: BP 105/73
[2024-11-30] MEDS ORDERED: Scopolamine Hydrobromide Patch TOP PRN (20:30)
[2024-11-30] MEDS ORDERED: HyDROXyzine HCl 25 MG Tab PO PRN (20:30)
[2024-11-30] MEDS ORDERED: Bisacodyl 10 MG Supp PR PRN (20:55)
[2024-11-30] MEDS ORDERED: Docusate Sodium 250 MG Cap PO SCH (21:00)
[2024-11-30] MEDS ORDERED: Sennosides 8.6 MG Tab PO SCH (21:00)
[2024-11-30] MEDS ORDERED: CefTRIAXone Sodium 2,000 MG in NS 100 ML IV SCH (21:30)
[2024-12-01 03:16] VITALS: BP 101/64
--- NOTE | 2024-12-01 04:57 | NUR ---
NO ACUTE CHANGES, MEDICATED FOR PAIN AND ANXIETY, CALL LIGHT WITH IN REACH, INDEPEDANT IN ROOM, CLEAR LIQUID DIET, CLEARLY MAKES NEEDS KNOWN, HEATING PAD, WILL RELAY TO PM RN
[2024-12-01 06:12] LABS: Hematocrit 33.4 % (33.0-51.0); Hemoglobin 10.3 g/dL (11.5-16.0); Mean Corpuscular HGB 25.8 pg (26.0-34.0); Mean Corpuscular HGB Conc 30.8 g/dL (31.5-36.5); Mean Corpuscular Volume 84 fL (80-100); Mean Platelet Volume 10.3 fL (9.1-12.4); Platelet Count 331 K/mm3 (150-400); RDW Coefficient Variation 16.6 % (11.7-14.2); RDW Standard Deviation 50.7 fL (35.1-46.3); Red Blood Cell Count 3.99 M/mm3 (3.80-5.20); White Blood Cell Count 5.46 K/mm3 (4.00-11.30)
[2024-12-01 06:40] LABS: Bun/Creatinine Ratio 10.3 (12.0-20.0); C-REACTIVE PROTEIN, EXT RANGE 1.14 mg/dL (0.000-0.300); Creatinine, Blood 0.98 mg/dL (0.40-1.00); Potassium, Blood 3.7 mmol/L (3.5-5.5)
[2024-12-01 07:32] VITALS: BP 118/92
[2024-12-01] MEDS ORDERED: Atorvastatin 40 MG Tab PO SCH (09:00)
[2024-12-01] MEDS ORDERED: Losartan Potassium 25 MG Tab PO SCH (09:00)
[2024-12-01] MEDS ORDERED: Aspirin 81 MG Chew PO SCH (09:00)
[2024-12-01] MEDS ORDERED: Polyethylene Glycol 3350 17 gm PO SCH (09:00)
[2024-12-01] MEDS ORDERED: FLUoxetine HCL 20 MG CAP PO SCH (09:00)
[2024-12-01] MEDS ORDERED: Clopidogrel Bisulfate 75 MG Tab PO SCH (09:00)
[2024-12-01 15:53] VITALS: BP 139/93
[2024-12-01] MEDS ORDERED: Nystatin 100,000 Unit/ML Susp 5 ML UDC PO SCH (17:00)
--- NOTE | 2024-12-01 18:32 | NUR ---
A&Ox4, INDEPENDENT, CONTINENT, CLEAR LIQUID DIET, BM THIS MORNING AFTER SUPPOSITORY WAS PLACED, PAIN MEDICATION REQUESTED, DR HERNANDEZ AT BEDSIDE FOR CONSULT, ANTIBIOTICS DISCONTUNED, NO NEW CONCERNS, CONTUNIE WITH BOWEL CARE
--- NOTE | 2024-12-01 19:18 | NUR ---
REVIEWED CHARTING DONE BY KJ MACIEL RN AND I AGREE WITH HER DOCUMENTATION FOR THIS PATIENT.
[2024-12-01 19:47] VITALS: BP 92/75
[2024-12-01] MEDS ORDERED: Magnesium Oxide 400 MG Tab PO SCH (21:00)
[2024-12-02 05:31] VITALS: BP 113/97
[2024-12-02 05:43] LABS: BASOPHILS ABSOLUTE AUTO 0.04 K/mm3 (0.00-0.23); BASOPHILS PERCENT AUTO 1 % (0-2); EOSINOPHILS ABSOLUTE AUTO 0.16 K/mm3 (0.00-0.68); EOSINOPHILS PERCENT AUTO 3 % (0-6); Hematocrit 37.3 % (33.0-51.0); Hemoglobin 11.5 g/dL (11.5-16.0); IMMATURE GRAN ABSOLUTE AUTO 0.01 K/mm3 (0.00-0.10); IMMATURE GRAN PERCENT AUTO 0 % (0-1); LYMPHOCYTES ABSOLUTE AUTO 2.73 K/mm3 (0.84-5.20); LYMPHOCYTES PERCENT AUTO 45 % (21-46); MONOCYTES ABSOLUTE AUTO 0.43 K/mm3 (0.16-1.47); MONOCYTES PERCENT AUTO 7 % (4-13); Mean Corpuscular HGB 25.8 pg (26.0-34.0); Mean Corpuscular HGB Conc 30.8 g/dL (31.5-36.5); Mean Corpuscular Volume 84 fL (80-100); Mean Platelet Volume 10.1 fL (9.1-12.4); NEUTROPHILS ABSOLUTE AUTO 2.77 K/mm3 (1.96-9.15); NEUTROPHILS PERCENT AUTO 45 % (41-73); Platelet Count 371 K/mm3 (150-400); RDW Coefficient Variation 16.3 % (11.7-14.2); RDW Standard Deviation 50.4 fL (35.1-46.3); Red Blood Cell Count 4.46 M/mm3 (3.80-5.20); White Blood Cell Count 6.14 K/mm3 (4.00-11.30)
[2024-12-02 06:09] LABS: Bun/Creatinine Ratio 10.8 (12.0-20.0); Calcium, Blood 9.4 mg/dL (8.5-10.1); Creatinine, Blood 1.02 mg/dL (0.40-1.00); Potassium, Blood 4.2 mmol/L (3.5-5.5)
[2024-12-02 08:01] VITALS: BP 119/86
[2024-12-02] MEDS ORDERED: Magnesium Hydroxide Conc 10 ML UDC PO SCH (09:00)
[2024-12-02] MEDS ORDERED: Fluconazole 100 MG Tab PO STA (11:02)
[2024-12-02] MEDS ORDERED: NYSTATIN100000 U13 MT (11:25)
[2024-12-02] MEDS ORDERED: MIRALAX17 GM PO (11:25)
--- NOTE | 2024-12-02 12:09 | NUR ---
YARIEL SMART'D TP HOME. BERRY INSTRUCTIONS AND EDUCATION DISCUSSED WITH PATIENT AND COPY PROVIDED. RX MEDICATIONS FAXED TO [facility]. PATIENT DENIES ANY FURTHER QUESTIONS OR CONCERNS.
== END 2024-12-02 12:09 | disposition home or self-care (01) | DRG 392 ==
LOC: ER 07:40 → MEDS 12:48
PROVIDERS: Student in an Organized Health Care Education/Training Program; ADMIT Internal Medicine
DX: K57.20 Diverticulitis of large intestine with perforation and abscess without bleeding (principal); E87.1 Hypo-osmolality and hyponatremia; I50.22 Chronic systolic (congestive) heart failure; B37.0 Candidal stomatitis; K21.9 Gastro-esophageal reflux disease without esophagitis; K27.9 Peptic ulcer, site unspecified, unspecified as acute or chronic, without hemorrhage or perforation; F43.10 Post-traumatic stress disorder, unspecified; F41.9 Anxiety disorder, unspecified; F32.A Depression, unspecified; I11.0 Hypertensive heart disease with heart failure; E78.5 Hyperlipidemia, unspecified; B37.31 Acute candidiasis of vulva and vagina; F17.200 Nicotine dependence, unspecified, uncomplicated; K59.09 Other constipation; I25.10 Atherosclerotic heart disease of native coronary artery without angina pectoris; R94.31 Abnormal electrocardiogram [ECG] [EKG]; I25.2 Old myocardial infarction; Z88.0 Allergy status to penicillin; Z79.82 Long term (current) use of aspirin; Z79.02 Long term (current) use of antithrombotics/antiplatelets; Z79.84 Long term (current) use of oral hypoglycemic drugs; Z79.2 Long term (current) use of antibiotics
CPT/HCPCS: 36415; 74177; 80048; 80053; 84145; 85025; 85027; 85610; 85730; 86140; 86850; 86900; 86901; 93005; 93010; 96365-59; 96375; 99285-25; A9270; J0696; J0744; J1171; J2405; J2543; J7050; Q9967

== ENCOUNTER 2025-01-20 13:31 | Inpatient (IN) | payer OTHER ==
[~2025-01-20] VITALS: Ht 160 cm; Wt 55.8 kg
[~2025-01-20 13:31] MED LIST changes: +CEFU500T30 PO; +CLINDAMYCIN HC300 MG PO; +Cipro500 MG PO; +Flagyl500 MG PO; +METO25 PO; +MIRALAX17 GM PO; +NYSTATIN100000 U13 MT; +OXAYDO5 M1 PO; +TRAM50 PO; +VISBIOME 112.51 EACH PO
[2025-01-20 13:47] LABS: BASOPHILS ABSOLUTE AUTO 0.04 K/mm3 (0.00-0.23); BASOPHILS PERCENT AUTO 0 % (0-2); EOSINOPHILS ABSOLUTE AUTO 0.06 K/mm3 (0.00-0.68); EOSINOPHILS PERCENT AUTO 1 % (0-6); Hematocrit 40.6 % (33.0-51.0); Hemoglobin 12.9 g/dL (11.5-16.0); IMMATURE GRAN ABSOLUTE AUTO 0.02 K/mm3 (0.00-0.10); IMMATURE GRAN PERCENT AUTO 0 % (0-1); LYMPHOCYTES ABSOLUTE AUTO 1.62 K/mm3 (0.84-5.20); LYMPHOCYTES PERCENT AUTO 18 % (21-46); MONOCYTES ABSOLUTE AUTO 0.44 K/mm3 (0.16-1.47); MONOCYTES PERCENT AUTO 5 % (4-13); Mean Corpuscular HGB 26.9 pg (26.0-34.0); Mean Corpuscular HGB Conc 31.8 g/dL (31.5-36.5); Mean Corpuscular Volume 85 fL (80-100); Mean Platelet Volume 10.6 fL (9.1-12.4); NEUTROPHILS ABSOLUTE AUTO 6.72 K/mm3 (1.96-9.15); NEUTROPHILS PERCENT AUTO 76 % (41-73); Platelet Count 283 K/mm3 (150-400); RDW Standard Deviation 46.1 fL (35.1-46.3)
[2025-01-20 14:09] LABS: Bilirubin, Total 0.4 mg/dL (0.1-1.0); Bun/Creatinine Ratio 12.6 (12.0-20.0); Calcium, Blood 9.1 mg/dL (8.5-10.1); Creatinine, Blood 1.03 mg/dL (0.40-1.00); Globulin, Blood 4.2 g/dL (2.2-4.0); Potassium, Blood 3.9 mmol/L (3.5-5.5); Total Protein, Blood 8.2 g/dL (6.4-8.2)
[2025-01-20] MEDS ORDERED: Ondansetron HCl 2 MG / ML 2ML Vial IV ONE (16:00)
[2025-01-20] MEDS ORDERED: OxyCODONE HCL 5 MG TAB PO ONE (18:05)
[2025-01-20] MEDS ORDERED: MetroNIDAZOLE 500MG/NS 100 ml 100 ML IV ONE (18:05)
[2025-01-20] MEDS ORDERED: CEFUROXIME SODIUM IV ONE (18:05)
[2025-01-20] MEDS ORDERED: Ketorolac Tromethamine 15mg Vial IV ONE (18:05)
[2025-01-20] MEDS ORDERED: NS IV ONE (18:05)
[2025-01-20] MEDS ORDERED: Ondansetron HCl 2 MG / ML 2ML Vial IV PRN (19:35)
[2025-01-20] MEDS ORDERED: OxyCODONE HCL 5 MG TAB PO PRN (19:35)
[2025-01-20] MEDS ORDERED: Polyethylene Glycol 3350 17 gm PO PRN (19:40)
[2025-01-20] MEDS ORDERED: Acetaminophen 500 MG Tab PO PRN (19:40)
[2025-01-20] MEDS ORDERED: Ketorolac Tromethamine 15mg Vial IV PRN (20:00)
[2025-01-20] MEDS ORDERED: Lactated Ringer's 1,000 ML IV SCH (20:00)
[2025-01-20] MEDS ORDERED: Docusate Sodium/Senna 1 Tab PO SCH (21:00)
[2025-01-20] MEDS ORDERED: Lactobacil 2-S.Thermo-Bifido 1 1 Cap PO SCH (21:00)
[2025-01-20 21:02] VITALS: BP 173/103
--- NOTE | 2025-01-20 21:33 | NUR ---
ARRIVAL NOTE PT ARRIVED TO UNIT VIA GURNEY AT APPROX 2133. PT ABLE TO TRANSFER SELF. IS A/OX4. REPORTS ABD PAIN AT TOLERABLE LEVEL. DENIES CHEST PAIN, PRESSURE, N/V OR N/T. IV PATENT AND SL. ORIENTATION TO ROOM PROVIDED. PT DENIES NEED TO LOCK PERSONAL BELONGINGS IN SAFE. STATES HAVING BM TODAY AND VOIDED UPON ARRIVAL. PT CHANGED SELF INTO GOWN AND NO SKID SOCKS, RN APPLIED SCDS. FRESH ICE WATER PROVIDED. PT HAS CALL LIGHT IN REACH AND DENIED NEEDS.
[2025-01-20 22:57] VITALS: BP 135/92
--- NOTE | 2025-01-21 01:55 | NUR ---
UPDATE PROVIDER NOTIFIED OF NPO STATUS, NEW ORDER FOR IVF OBTAINED. SEE EMAR. WILL IMPLEMENT ORDERED.
[2025-01-21] MEDS ORDERED: MetroNIDAZOLE 500MG/NS 100 ml 100 ML IV SCH (02:00)
[2025-01-21] MEDS ORDERED: CEFUROXIME SODIUM IV SCH (02:00)
[2025-01-21] MEDS ORDERED: NS IV SCH (02:00)
[2025-01-21] MEDS ORDERED: NS 1,000 ML IV SCH (02:25)
--- NOTE | 2025-01-21 03:45 | NUR ---
SHIFT SUMMARY NO ACUTE CHANGES SINCE ADMIT TO UNIT. PT A/OX4. IND IN ROOM. MEDICATED X 1 FOR PRN PAIN W/ PO PER EMAR. ABX/IVF INFUSING PER ORDER. NPO AT MIDNIGHT R/T INTERVENTION TODAY. TELE IN PLACE, HR SB AT 48 BPM. DENIES CP/PRESSURE, DIZZINESS, OR SOB. SCDS ON. IS VOIDING. PT PLEASANT AND COOPERATIVE WITH CARE. CURRENTLY AWAKE IN ROOM WITH CALL LIGHT IN REACH. DENIES NEEDS. IS ABLE TO MAKE NEEDS KNOWN. WILL GIVE REPORT TO ONCOMING RN.
[2025-01-21 05:07] VITALS: BP 128/80
[2025-01-21 05:20] LABS: Hematocrit 37.8 % (33.0-51.0); Hemoglobin 11.7 g/dL (11.5-16.0); Mean Corpuscular HGB 27.3 pg (26.0-34.0); Mean Corpuscular Volume 88 fL (80-100); Mean Platelet Volume 10.9 fL (9.1-12.4); Platelet Count 228 K/mm3 (150-400); RDW Coefficient Variation 15.6 % (11.7-14.2); RDW Standard Deviation 50.1 fL (35.1-46.3); Red Blood Cell Count 4.29 M/mm3 (3.80-5.20); White Blood Cell Count 5.05 K/mm3 (4.00-11.30)
[2025-01-21 05:39] LABS: Albumin, Blood 3.3 g/dL (3.4-5.0); Anion Gap 8 mmol/L (3-11); Blood Urea Nitrogen 16 mg/dL (8-24); Bun/Creatinine Ratio 15.7 (12.0-20.0); CO2, Blood 26 mmol/L (21-32); Calcium, Blood 8.7 mg/dL (8.5-10.1); Chloride, Blood 107 mmol/L (98-108); Creatinine, Blood 1.02 mg/dL (0.40-1.00); Glomerular Filtration Rate 65 (60-); Glucose, Blood 93 mg/dL (70-99); Magnesium, Blood 2.2 mg/dL (1.6-2.4); Phosphorus, Blood 4.3 mg/dL (2.5-4.9); Potassium, Blood 3.6 mmol/L (3.5-5.5); Sodium, Blood 137 mmol/L (136-145)
[2025-01-21 07:14] VITALS: BP 117/96
--- NOTE | 2025-01-21 14:17 | NUR ---
AFTERNOON SUMMARY NO SURGERY TODAY, BUT CONT IV ABX. ADVANCED TO FULL LIQ DIET. ROXICODONE/TORADOL/TYLENOL FOR PAIN CONTROL. IVF INFUSING PER ORDERS. NO TELE EVENTS-REMAINS IN SR. INDEP IN ROOM. USES CALL LIGHT APPROPRIATELY.
--- NOTE | 2025-01-21 14:56 | NUR ---
ASSUMPTION OF CARE PT RESTING IN BED, TALKING ON PHONE WITH FAMILY. NO NEEDS STATED. CALL LIGHT IN REACH
[2025-01-21 15:57] VITALS: BP 173/102
[2025-01-21 15:58] VITALS: BP 173/102
[2025-01-21 19:21] VITALS: BP 173/98
[2025-01-21] MEDS ORDERED: Metoprolol Tartrate 25 MG Tab PO SCH (21:00)
[2025-01-22 00:14] VITALS: BP 156/93
[2025-01-22 02:51] VITALS: BP 165/86
[2025-01-22 04:57] LABS: Hematocrit 35.4 % (33.0-51.0); Hemoglobin 10.9 g/dL (11.5-16.0); Mean Corpuscular HGB 26.7 pg (26.0-34.0); Mean Corpuscular HGB Conc 30.8 g/dL (31.5-36.5); Mean Corpuscular Volume 87 fL (80-100); Mean Platelet Volume 10.7 fL (9.1-12.4); Platelet Count 200 K/mm3 (150-400); RDW Standard Deviation 48.1 fL (35.1-46.3); Red Blood Cell Count 4.09 M/mm3 (3.80-5.20); White Blood Cell Count 4.85 K/mm3 (4.00-11.30)
--- NOTE | 2025-01-22 05:17 | NUR ---
SHIFT SUMMARY NO ACUTE CHANGES T/O SHIFT. ABD PAIN MANAGED PER EMAR. WILLIAN FULL LIQUID DIET, DENIES N/V. IS VOIDING AND IND IN ROOM. REF SCDS DUE TO COMFORT. IVF AND ABX INFUSED PER ORDERS. PT PLEASANT AND COOPERATIVE WITH CARE. IS CURRENTLY RESTING IN BED WITH EYES CLOSED, RESP EVEN/UNLABORED, AND CALL LIGHT IN REACH. WILL GIVE REPORT TO ONCOMING RN.
[2025-01-22] MEDS ORDERED: Pantoprazole Sodium 40 MG Tab PO SCH (06:00)
[2025-01-22 06:17] LABS: Bun/Creatinine Ratio 13.1 (12.0-20.0); Calcium, Blood 8.6 mg/dL (8.5-10.1); Creatinine, Blood 0.84 mg/dL (0.40-1.00); Potassium, Blood 3.9 mmol/L (3.5-5.5)
[2025-01-22 06:43] VITALS: BP 142/89
[2025-01-22] MEDS ORDERED: Losartan Potassium 25 MG Tab PO SCH (09:00)
[2025-01-22] MEDS ORDERED: FLUoxetine HCL 20 MG CAP PO SCH (09:00)
[2025-01-22] MEDS ORDERED: Aspirin 81 MG TabEC PO SCH (09:00)
[2025-01-22] MEDS ORDERED: Atorvastatin 40 MG Tab PO SCH (09:00)
--- NOTE | 2025-01-22 14:49 | NUR ---
REPORT TO CHIOMA LORENZO TO ASSUME CARE AND DISCHARGE. TLLANG WAS IN TO SEE YARIEL AND IS DISCHARGING HOME TODAY. PATIENT IS TOLERATING PO INTAKE, VOIDING, PASSING GAS, AND HAVING BMS. SHOWERED TODAY. MEDICATED PER EMAR FOR PAIN. IV ABX INFUSED THIS AM. SURGERY WAS IN TO SEE PATIENT AND IS RECOMMENDING OUTPATIENT SCHEDULING FOR SURGERY. ALL BELONGINGS PACKED AND PATIENT IS READY FOR DC.
[2025-01-22 15:03] VITALS: BP 173/100
[2025-01-22] MEDS ORDERED: Percocet 5-3251 EACH PO (15:21)
[2025-01-22] MEDS ORDERED: CIPR500 PO (16:09)
[2025-01-22] MEDS ORDERED: DOCUZEN 8.6-501 EACH PO (16:09)
[2025-01-22] MEDS ORDERED: VISBIOME 112.51 EACH PO (16:10)
[2025-01-22] MEDS ORDERED: MIRALAX17 GM PO (16:10)
[2025-01-22] MEDS ORDERED: METR500 PO (16:11)
--- NOTE | 2025-01-22 16:24 | NUR ---
DISCHARGE PT EDUCATED ON AND RECEIVED PRINTED DISCHARGE INSTRUCTIONS AND VERBALIZED AN UNDERSTANDING. NEW RX FAXED TO [facility] PER PT REQUEST. HARD RX FOR PERCOCET GIVEN TO PT. SUSAN SMART'[place]asper. PT GATHERED ALL PERSONAL BELONGINGS AND INDEPENDENTLY WALKED TO PT ENTRANCE TO BE PICKED UP BY [facility] [employer]SPORT TO BE TAKEN HOME.
== END 2025-01-22 16:27 | disposition home or self-care (01) | DRG 392 ==
LOC: ER 13:31 → SURS 19:33
PROVIDERS: Internal Medicine; Physician Assistant; ADMIT Internal Medicine
DX: K57.20 Diverticulitis of large intestine with perforation and abscess without bleeding (principal); I50.22 Chronic systolic (congestive) heart failure; I51.81 Takotsubo syndrome; N70.92 Oophoritis, unspecified; N83.8 Other noninflammatory disorders of ovary, fallopian tube and broad ligament; K21.9 Gastro-esophageal reflux disease without esophagitis; K27.9 Peptic ulcer, site unspecified, unspecified as acute or chronic, without hemorrhage or perforation; F43.12 Post-traumatic stress disorder, chronic; F41.9 Anxiety disorder, unspecified; F32.A Depression, unspecified; E78.5 Hyperlipidemia, unspecified; K59.09 Other constipation; N73.9 Female pelvic inflammatory disease, unspecified; I10 Essential (primary) hypertension; I25.2 Old myocardial infarction; Z88.0 Allergy status to penicillin; Z79.82 Long term (current) use of aspirin; Z87.891 Personal history of nicotine dependence
CPT/HCPCS: 36415; 71046; 74177; 80048; 80053; 80069; 83735; 85025; 85027; 96365-59; 96367; 96375; 99285-25; A9270; J0697; J1885; J2405; J7030; Q9967

== ENCOUNTER 2025-04-19 11:38 | Inpatient (IN) | payer OTHER ==
[~2025-04-19] VITALS: Ht 160 cm; Wt 50.2 kg
[2025-04-19] VITALS (16 sets, daily range): BP systolic 70–162; BP diastolic 52–111
[~2025-04-19 11:38] MED LIST changes: +CIPR500 PO; +DOCUZEN 8.6-501 EACH PO
[2025-04-19] MEDS ORDERED: BUPRENORPHINE-1 EACH SL (12:05)
[2025-04-19] MEDS ORDERED: Ondansetron HCl 2 MG / ML 2ML Vial IV ONE (12:05)
[2025-04-19] MEDS ORDERED: IRBESARTAN75 M3 PO (12:05)
[2025-04-19] MEDS ORDERED: HYDROmorphone HCl/Pf 1MG SYR IV ONE (12:05)
[2025-04-19] MEDS ORDERED: METOPROLOL SUCC25 MG PO (12:05)
[2025-04-19] MEDS ORDERED: NS 1,000 ML IV SCH (12:05)
[2025-04-19 12:16] LABS: BASOPHILS ABSOLUTE AUTO 0.04 K/mm3 (0.00-0.23); BASOPHILS PERCENT AUTO 1 % (0-2); EOSINOPHILS ABSOLUTE AUTO 0.02 K/mm3 (0.00-0.68); EOSINOPHILS PERCENT AUTO 0 % (0-6); Hematocrit 40.8 % (33.0-51.0); Hemoglobin 13.1 g/dL (11.5-16.0); IMMATURE GRAN ABSOLUTE AUTO 0.04 K/mm3 (0.00-0.10); IMMATURE GRAN PERCENT AUTO 1 % (0-1); LYMPHOCYTES ABSOLUTE AUTO 1.26 K/mm3 (0.84-5.20); LYMPHOCYTES PERCENT AUTO 14 % (21-46); MONOCYTES ABSOLUTE AUTO 0.19 K/mm3 (0.16-1.47); MONOCYTES PERCENT AUTO 2 % (4-13); Mean Corpuscular HGB Conc 32.1 g/dL (31.5-36.5); Mean Corpuscular Volume 85 fL (80-100); NEUTROPHILS ABSOLUTE AUTO 7.26 K/mm3 (1.96-9.15); NEUTROPHILS PERCENT AUTO 82 % (41-73); NRBC ABSOLUTE 0.00 K/mm3 (0.00-0.02); NRBC Auto 0.0 /100 WBC (0.0-0.2); Platelet Count 296 K/mm3 (150-400); RDW Coefficient Variation 13.1 % (11.7-14.2); RDW Standard Deviation 40.6 fL (35.1-46.3)
[2025-04-19 13:01] LABS: Alanine Aminotransfer (ALT/SGP 33.0 U/L (12-78); Albumin, Blood 3.7 g/dL (3.4-5.0); Albumin/Globulin Ratio 0.9 (0.8-1.8); Anion Gap 12.0 mmol/L (3-11); Aspartate Aminotrans (AST/SGOT 15.0 U/L (12-37); Bilirubin, Total 0.8 mg/dL (0.1-1.0); Blood Urea Nitrogen 14.0 mg/dL (8-24); CO2, Blood 23.0 mmol/L (21-32); Calcium, Blood 9.2 mg/dL (8.5-10.1); Chloride, Blood 104.0 mmol/L (98-108); Creatinine, Blood 0.81 mg/dL (0.40-1.00); Globulin, Blood 4.0 g/dL (2.2-4.0); Glucose, Blood 166.0 mg/dL (70-99); Potassium, Blood 3.9 mmol/L (3.5-5.5); Sodium, Blood 135.0 mmol/L (136-145); Total Protein, Blood 7.7 g/dL (6.4-8.2)
[2025-04-19] MEDS ORDERED: Nitroglycerin Patch 0.4 MG / HR TOP ONE (13:15)
[2025-04-19] MEDS ORDERED: Ondansetron 4 MG SoluTab SL ONE (14:10)
[2025-04-19] MEDS ORDERED: Magnesium Sulf 2 GM/Water 50ML 50 ML IV ONE (14:15)
[2025-04-19 14:22] LABS: Anti-Xa UFH, PHA Monitoring <0.10 IU/mL; Prothrombin Time Results 11.3 Sec (9.7-11.5)
[2025-04-19] MEDS ORDERED: Dose Adjust by Pharmacy XX STA ×2 (14:28→22:08)
[2025-04-19] MEDS ORDERED: Heparin Sodium 5000 Units/ML 1ML MDV IV ONE ×2 (14:30→22:10)
[2025-04-19] MEDS ORDERED: Heparin Sodium,Porcine/0.5 NS 500 ML IV SCH ×2 (14:30→22:10)
[2025-04-19 15:26] LABS: U Amphetamine Screen Not Detected; U Barbituate Screen Not Detected; U Benzodiazapine Screen Not Detected; U Buprenorphine Screen DETECTED; U Cannabinoids Screen DETECTED; U Cocaine Screen Not Detected; U Methadone Screen Not Detected; U Methamphetamine Screen Not Detected; U Opiates Screen DETECTED; U Oxycodone Screen Not Detected; U Phencyclidine Screen Not Detected
[2025-04-19 16:29] LABS: Source, Urine Clean Catch
[2025-04-19] MEDS ORDERED: Polyethylene Glycol 3350 17 gm PO PRN (16:35)
[2025-04-19 16:42] LABS: Bilirubin, Urine Neg (Neg); Glucose Qualitative, Urine 1+ (Neg); Ketones, Urine 2+ (Neg); Leukocyte Esterase, Urine Neg (Neg); Protein, Urine Neg (Neg); Specific Gravity, Urine 1.015 (1.003-1.022); Urobilinogen, Urine NORM (Normal)
[2025-04-19 16:46] LABS: Color, Urine Pale Yellow (P-Yellow)
[2025-04-19 16:47] LABS: White Blood Cells, Urine 0-2 /hpf (0-5)
[2025-04-19] MEDS ORDERED: HYDROmorphone HCl/Pf 1MG SYR IV PRN (17:10)
[2025-04-19] MEDS ORDERED: Enoxaparin 40 MG/0.4 ML SYR SC SCH (17:30)
--- NOTE | 2025-04-19 18:34 | NUR ---
SHIFT SUMMARY; ASSUMED CARE FROM ED FOR ADMIT AT 1630. A/A/OX4, INDEPENDANT WITH SBA. BRADYCARDIA IN 40'S, HTN ON ARRIVAL, MEDS PER EMAR. PLEASANT AND COOPERATIVE WITH CARE, CALL LIGHT IN REACH AND ABLE TO MAKE NEEDS KNOWN. WILL CONTINUE TO MONITOR AND TREAT UNTIL REPORT GIVEN TO ONCOMING NOC RN.
[2025-04-19] MEDS ORDERED: Amiodarone HCl 50 MG / ML 3 ML Amp IV ONE (20:28)
[2025-04-19] MEDS ORDERED: Lidocaine HCl 2% 20 MG/ML 5ML SYR IV ONE (20:28)
[2025-04-19] MEDS ORDERED: Magnesium Sulfate 500 MG / ML 2ML Vial IV ONE (20:28)
[2025-04-19] MEDS ORDERED: Buprenorphine HCL/Naloxone HCL 8MG-2MG Tab SL SCH (21:00)
[2025-04-19] MEDS ORDERED: Lactobacil 2-S.Thermo-Bifido 1 1 Cap PO SCH (21:00)
--- NOTE | 2025-04-19 21:54 | NUR ---
MD NOTIFED PT ALERT AND HOLDING APPROPRIATE CONVERSATION, PT HR 50'S AND SBP 70-80'S, ALL OTHER VITAL SIGNS STABLE, PT REPORTING DIZZINESS BUT DENIES CHEST P/P, PT REPORTING IMPROVED NAUSEA, MD NOTIFED @ APPROX 2040 OF HYPOTENSION, BOULUS ORDERED AND GIVEN PER ORDERS, MD TO BEDSIDE @ APPORX 2100/ NEW ORDERS PLACED, MD NOTIFED OF PT QTC GOING FROM 48 TO 57
--- NOTE | 2025-04-19 23:24 | NUR ---
NOTIFED DR. DIAMOND UPDATED BY THIS RN @ APPROX 2250, NEW ORDERS PLACED. DR. REID UPDATED BY THIS IN @ APPROX 2310 DR. MEJIA TO BEDSIDE @ APPORX 2320, NEW ORDERS PLACED
[2025-04-20] VITALS (46 sets, daily range): BP systolic 74–203; BP diastolic 48–152
[2025-04-20 04:31] LABS: BASOPHILS ABSOLUTE AUTO 0.03 K/mm3 (0.00-0.23); BASOPHILS PERCENT AUTO 0 % (0-2); EOSINOPHILS ABSOLUTE AUTO 0.01 K/mm3 (0.00-0.68); EOSINOPHILS PERCENT AUTO 0 % (0-6); Hematocrit 34.8 % (33.0-51.0); Hemoglobin 11.4 g/dL (11.5-16.0); IMMATURE GRAN ABSOLUTE AUTO 0.01 K/mm3 (0.00-0.10); IMMATURE GRAN PERCENT AUTO 0 % (0-1); LYMPHOCYTES ABSOLUTE AUTO 2.21 K/mm3 (0.84-5.20); LYMPHOCYTES PERCENT AUTO 33 % (21-46); MONOCYTES ABSOLUTE AUTO 0.44 K/mm3 (0.16-1.47); MONOCYTES PERCENT AUTO 7 % (4-13); Mean Corpuscular HGB Conc 32.8 g/dL (31.5-36.5); Mean Corpuscular Volume 84 fL (80-100); NEUTROPHILS ABSOLUTE AUTO 4.00 K/mm3 (1.96-9.15); NEUTROPHILS PERCENT AUTO 60 % (41-73); NRBC ABSOLUTE 0.00 K/mm3 (0.00-0.02); NRBC Auto 0.0 /100 WBC (0.0-0.2); Platelet Count 285 K/mm3 (150-400); RDW Coefficient Variation 13.2 % (11.7-14.2); RDW Standard Deviation 40.4 fL (35.1-46.3)
--- NOTE | 2025-04-20 04:32 | NUR ---
NOTIFED @ APPROX [address] MEJIA THAT PT WAS STATING TO SUSTAIN HR OF UPPER 30'S, PT REMAINED NONSYMPOTMATIC AND BP REMAINED SOFT BUT MAPS WERE GREATER THAN 65. RN TO NOTIFY IF SBP REMAINED 80'S AFTER 1L LR @ 75 COMPLETE OR PATIENT BECAME SYMPOTMATIC
[2025-04-20 04:52] LABS: Alanine Aminotransfer (ALT/SGP 32.0 U/L (12-78); Albumin, Blood 2.8 g/dL (3.4-5.0); Albumin/Globulin Ratio 0.9 (0.8-1.8); Anion Gap 8.0 mmol/L (3-11); Aspartate Aminotrans (AST/SGOT 23.0 U/L (12-37); Bilirubin, Total 0.5 mg/dL (0.1-1.0); Blood Urea Nitrogen 12.0 mg/dL (8-24); CO2, Blood 28.0 mmol/L (21-32); Calcium, Blood 8.3 mg/dL (8.5-10.1); Chloride, Blood 103.0 mmol/L (98-108); Creatinine, Blood 0.82 mg/dL (0.40-1.00); Globulin, Blood 3.2 g/dL (2.2-4.0); Glucose, Blood 93.0 mg/dL (70-99); Potassium, Blood 3.2 mmol/L (3.5-5.5); Sodium, Blood 136.0 mmol/L (136-145); Total Protein, Blood 6.0 g/dL (6.4-8.2)
--- NOTE | 2025-04-20 06:05 | NUR ---
SHIFT SUMMARY PT A&O X4, HOLDING APPROPRIATE CONVERSATION, MOVING ALL EXTREMITIES WITH PURPOSE, OBEYS COMMANDS, REPOSITIONING SELF IN BED, SBA TO BRP, CALLS APPROPRIATELY. CONTINUOUS SPO2, SPO2 GREATER THAN 92% ON 1L O2 VIA NC, LUNGS SOUND CLEAR T/O, PT DENIES SOB, NO SIGNS OF RESPIRATORY DISTRESS NOTED. CONTINUOUS TELE MONITORING, SINUS 30-40 S, BP SOFT WITH SBP 70-100 S/ MD AWARE/ ORDERS PLACED/ PT RECEIVED 2X 500 ML BOLUS OF LR-INFUSING 1L OF LR @ 75 MLS/HR- AND RECEIVED 1 DOSE MIDODRINE THIS SHIFT, CAP REFILL WNL, PULSES PRESENT T/O, QTC PROLONGD/MD NOTIFED DENIES CHEST P/P T/O THIS SHIFT, PT REPORTING DIZZINESS AT THE START OF THIS SHIFT BUT HAS SINCE RESOLVED. BOWEL TONES PRESENT IN ALL 4Q, PT REPORTING NAUSEA AT THE BEGINNING OF THIS SHIFT BUT HAS SINCE IMPROVED, PT ALSO REPORTING FEELING OF CONSTIPATION. PT REPORTING CHRONIC ABD PAIN, HEATING PAD PLACED. EKG COMPLETES THIS AM AND PLACED IN PT CHART HEPARIN STARTED THIS SHIFT AND INFUSING PER ORDERS BED LOWEST POSITION, CALL LIGHT IN REACH, AWAITING TO GIVE REPORT TO ONCOMING RN.
[2025-04-20] MEDS ORDERED: Clarify Drug Order XX ONE (06:25)
[2025-04-20] MEDS ORDERED: Potassium Chl 20MEQ/Water100ML 100 ML IV STA (08:31)
[2025-04-20] MEDS ORDERED: OxyCODONE 5 mg/Acetamin 325 mg TABLET PO PRN (08:50)
[2025-04-20] MEDS ORDERED: TRANSDERM-SCOP1 EA13 TD (10:20)
[2025-04-20] MEDS ORDERED: CefTRIAXone Sodium 1,000 MG in NS 100 ML IV SCH (11:51)
--- NOTE | 2025-04-20 13:32 | NUR ---
ASSUMPTION OF CARE ASSUMED CARE AT 0700. HR 30-50'S W/SBP 60-80'S. PROVIDED NOTIFIED. NEW D/O RECEIVED, MEDS ADMINISTERED. ALERT AND ORIENTED X4. INDEPENDANT IN ROOM AT THIS MOMENT. BED IN LOWEST POSITION, CALL LIGHT WITH IN REACH.
[2025-04-20] MEDS ORDERED: MetroNIDAZOLE 500MG/NS 100 ml 100 ML IV SCH (15:00)
--- NOTE | 2025-04-20 15:26 | NUR ---
Upon receiving a referral for spiritual care, I visited the patient. She tells me about her medical history, the plan to go to [facility] for surgery and need to have her heart cooperate so she can have the surgery. She talks about her dog, Brandy, whom she receives much love and support from. The friends that live near her and her [employer] juli are also sources of strength and inner peace. She is tearful as she shares about not managing very well emotionally because her medical challenges. We talk about the end that is in sight (because she is moving closer to getting the surgery that she needs), the good support she has and the good things she is hoping for once she is healed up. I provided therapeutic listening and prayer. She responded well and showed signs of reduced stress and greater peace. I will continue to remain available to patient.
[2025-04-20] MEDS ORDERED: Ondansetron HCl 2 MG / ML 2ML Vial ONE ×2 (17:18→18:50)
[2025-04-20] MEDS ORDERED: Magnesium Sulf 2 GM/Water 50ML 50 ML IV STA (17:56)
[2025-04-20] MEDS ORDERED: LORazepam 2 MG/ML 1ML Injection ONE (17:59)
[2025-04-20] MEDS ORDERED: Amiodarone HCl 450 MG in NS 250 ML IV SCH (18:00)
[2025-04-20] MEDS ORDERED: Verapamil HCL 2.5 MG/ML 2ML Injection ONE (18:00)
--- NOTE | 2025-04-20 18:00 | NUR ---
"Spiritual Care | Rapid Response Responding to RR. No family are present. After conferring with Nurse Samples And Repairs Preparer this research electrician contacted the Pts. brother by phone, and left a message to call back. Informed charge nurse and nurse software qa manager."
[2025-04-20] MEDS ORDERED: Heparin Sodium 1000 Units/ML 10ML MDV ONE (18:01)
[2025-04-20] MEDS ORDERED: NS 1,000 ML IV ONE ×2 (18:01)
[2025-04-20] MEDS ORDERED: Nitroglycerin 2 MG/20 ML BTL ONE (18:01)
[2025-04-20] MEDS ORDERED: NS 250 ML IV ONE (18:01)
[2025-04-20] MEDS ORDERED: Midazolam HCl 1MG / ML 2ML Vial ONE (18:13)
[2025-04-20] MEDS ORDERED: FentaNYL Citrate 50 MCG/ML 2 ML Injection ONE (18:13)
[2025-04-20] MEDS ORDERED: Lidocaine 2000 MG Premix 250 ML IV SCH (18:15)
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
[2025-04-20 18:32] LABS: Chloride, Blood 107 mmol/L (98-108); Potassium, Blood 4.2 mmol/L (3.5-5.5); Sodium, Blood 136 mmol/L (136-145)
[2025-04-20 18:33] LABS: Anion Gap 11 mmol/L (3-11); Blood Urea Nitrogen 12 mg/dL (8-24); CO2, Blood 22 mmol/L (21-32); Calcium, Blood 8.4 mg/dL (8.5-10.1); Creatinine, Blood 0.81 mg/dL (0.40-1.00); Glucose, Blood 127 mg/dL (70-99); Magnesium, Blood 4.3 mg/dL (1.6-2.4); Phosphorus, Blood 2.1 mg/dL (2.5-4.9)
[2025-04-20 18:34] LABS: Albumin, Blood 3.0 g/dL (3.4-5.0)
--- NOTE | 2025-04-20 19:55 | NUR ---
ARRIVAL TO UNIT PT ARRIVED TO UNIT FROM RESIDENTIAL SALES EXECUTIVE VIA BED. PT A&O x4. ANSWERS ALL QUESTIONS APPROPRIATELY, FOLLOWS COMMANDS. PT DENIES PAIN. PT PLACED ON 2L 02 VIA NC. SPO2 DESAT TO 88% ON RA. PT PACED @ 70BPM. PT HOOKED TO ZOLL MACHINE. LIDOCAINE @ 2MG/MIN & AMIO @ 1MG/MIN INFUSING VIA IV. LR INFUSING @ 150mL/HR. TR BAND c MIN SANG DRAINGE. ACCESS SITE TO R JUGAL C/D/I c MIN DRIED DRAINAGE UNDER DRESSING. PT REQUESTS BEDPAN, ABLE TO VOID & FOLLOW COMMANDS. PT REQUESTS & IS GIVEN PHONE. CALL LIGHT IN REACH, NO NEEDS STATED AT THIS TIME.
--- NOTE | 2025-04-20 22:37 | NUR ---
NOTIFIED PT BROTHER KAYLIE OF PT TRANSFER TO [facility]
[2025-04-21] VITALS (10 sets, daily range): BP systolic 131–160; BP diastolic 97–118
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
[2025-04-21] MEDS ORDERED: LORazepam 2 MG/ML 1ML Injection IV ONE (19:00)
== END 2025-04-21 02:25 | disposition short-term general hospital (02) | DRG 281 ==
LOC: ER 11:38 → PCU 14:56 → ICUE 14:56 → PCU 16:07 → ICUE 04-20 17:54
PROVIDERS: Emergency Medicine; Student in an Organized Health Care Education/Training Program; ADMIT Internal Medicine
PROC: B2111ZZ Fluoroscopy of Multiple Coronary Arteries using Low Osmolar Contrast (ICD-10-PCS; principal; 2025-04-20)
PROC: 4A023N7 Measurement of Cardiac Sampling and Pressure, Left Heart, Percutaneous Approach (ICD-10-PCS; 2025-04-20)
DX: I45.5 Other specified heart block (principal); F11.20 Opioid dependence, uncomplicated; I21.4 Non-ST elevation (NSTEMI) myocardial infarction; I16.1 Hypertensive emergency; I50.22 Chronic systolic (congestive) heart failure; Z59.01 Sheltered homelessness; I42.8 Other cardiomyopathies; I25.10 Atherosclerotic heart disease of native coronary artery without angina pectoris; R00.1 Bradycardia, unspecified; I95.9 Hypotension, unspecified; R94.31 Abnormal electrocardiogram [ECG] [EKG]; E78.5 Hyperlipidemia, unspecified; K21.9 Gastro-esophageal reflux disease without esophagitis; F41.9 Anxiety disorder, unspecified; G89.29 Other chronic pain; Z87.19 Personal history of other diseases of the digestive system; Z88.1 Allergy status to other antibiotic agents; Z79.82 Long term (current) use of aspirin; Z79.899 Other long term (current) drug therapy; I16.0 Hypertensive urgency; F17.210 Nicotine dependence, cigarettes, uncomplicated; Z90.710 Acquired absence of both cervix and uterus; Z98.890 Other specified postprocedural states; I11.0 Hypertensive heart disease with heart failure
CPT/HCPCS: 33210; 36415; 71045; 74177; 76937; 80053; 80069; 81001; 82330; 83690; 83735; 83880; 84484; 85025; 85520; 85610; 85730; 93005; 93010; 93308; 93321; 93454; 94762; 96361; 96365-59; 96375; 99152; 99153; 99285-25; A9270; C1769; C1887; C1894; G0378; J0282; J0696; J1171; J1644; J1650; J2003; J2060; J2250; J2405; J3010; J3475; J3480; J7030; J7050; J7120; Q9967